=== PATIENT | female | born 1935 | race Caucasian/White ===

== ENCOUNTER 2017-04-07 15:36 | Inpatient (IN) | payer OTHER, MEDICAID ==
--- NOTE | 2017-04-07 15:39 | EDPHY ---
H & P HPI/ROS: HPI CHIEF COMPLAINT: Fall off toilet at [place] HISTORY OF PRESENT ILLNESS: This patient 81-year-old female, on Coumadin for AFib, hypertension, she resides at [facility], she presents emergency room by EMS GCS 15, alert and orient x4 after she fell off her toilet. She is unclear exactly what happened. She thinks she may of passed out vs. fell asleep. She fell forward with head strike and has right shoulder and right elbow pain. There is a noted right skin tear. She initially declined transport to the hospital but EMS encouraged her to come. She denies chest pain or shortness of breath. Past Medical History: Hypertension, AFib on Coumadin Past Surgical History: No recent surgery Social History: Denies daily use of drugs alcohol tobacco products, lives at [place] Family History: Noncontributory ROS REVIEW OF SYSTEMS: A comprehensive 10 point review of systems is otherwise negative aside from elements mentioned in the history of present illness. Exam Constitutional appears well nontoxic triage nursing summary reviewed, vital signs reviewed, awake/alert. Eyes normal conjunctivae and sclera, EOMI, PERRLA. HENT head/neck: No midline cervical spine pain, dry blood at the external os of the right ear, normal inspection, atraumatic, moist mucus membranes, no epistaxis, neck supple/ no meningismus, no raccoon eyes. Respiratory clear to auscultation bilaterally, normal breath sounds, no respiratory distress, no wheezing. Cardiovascular rate normal, regular rhythm, no murmur, no edema, distal pulses normal. Gastrointestinal soft, non-tender, no rebound, no guarding, normal bowel sounds, no distension, no pulsatile mass. Genitourinary no CVA tenderness. Musculoskeletal right arm: Neurovascular intact. Good radial pulse. Good cap refill. Full range of motion of right elbow and right shoulder. no midline vertebral tenderness, full range of motion, no calf swelling, no tenderness of extremities, no meningismus, good pulses, neurovascularly intact. Skin skin tear to the right posterior elbow. Skin tears approximately 3 cm in length, ecchymosis to the right clavicular region, ecchymosis to the right lateral shoulder. Neurologic awake, alert and oriented x 3, AAOx3, moves all 4 extremities equally, motor intact, sensory intact, CN II-XII intact, normal cerebellar, normal vision, normal speech. Psychiatric normal mood/affect. Heme/Lymph/Immune no lymphadenopathy. Differential Diagnosis: Includes but is not limited to in a particular order, syncope, fall mechanical off toilet, head injury, intracranial bleed, cervical spine injury, skin tear, elbow injury, shoulder injury Medical Decision Making: Plan for this patient check basic blood work including INR level, CT head, CT cervical spine, right shoulder x-ray crying right elbow x-ray. Update tetanus shot. Re-evaluation: EKG interpretation by me on record in [employer] system. Impression time of EKG 1543, sinus rhythm rate of 84 low amplitude however when I compare this EKG to her previous EKGs dated 08/24/2016 is unchanged morphology. No acute ischemic changes seen on this EKG. ED x-ray right shoulder negative for acute fracture ED x-ray right elbow negative for acute fracture. CT scan of the head without IV contrast The results of the study are negative for acute traumatic injury The study was read by Dr. Blevins. I viewed the images myself on the PACS system. CT scan of the cervical spine without IV contrast. The results of the study are negative for acute fracture. The study was read by Dr. Blevins. I viewed the images myself on the PACS system. 1737: Re-evaluation at this time this patient is resting comfortably. She does have elevated troponin. I do trend troponin she has been higher in the past. However given that she had a syncopal episode with a positive troponin she will most likely need to stay overnight in observation with the hospitalist service to make sure she does not have a cardiac event including arrhythmia or further syncope. This time she has no chest pain or shortness of breath she feels well. CT scan of her head neck are pending at this time. I spoke with the hospitalist service Dr. Gomez who agrees to admit the patient Source: Patient, EMS - Medical/Surgical History Hx Asthma: No Hx Chronic Respiratory Disease: Yes Hx Diabetes: No Hx Cardiac Disease: Yes Hx Renal Disease: No Hx Cirrhosis: No Hx Alcoholism: No Hx HIV/AIDS: No Hx Splenectomy or Spleen Trauma: No Other PMH: PE 2012, traumatic intracranial hemorrhage, COPD, hypertension, neuropathy, anxiety, chronic pain, wears 3L at home all times, wound to LLE getting treated now - Social History Smoking Status: Former smoker Constitutional: Initial Vital Signs Temperature (C) 37 C 04/07/17 15:38 Heart Rate 88 04/07/17 15:38 Respiratory Rate 18 04/07/17 15:38 Blood Pressure 137/82 H 04/07/17 15:38 O2 Sat (%) 97 18 15:38 O2 Delivery Mode Nasal Cannula O2 (L/minute) 2 Allergies/Adverse Reactions: amitriptyline [Amitriptyline] Allergy (Unknown, Verified 08/29/16 15:27) Tetracyclines Allergy (Unknown, Verified 04/04/16 17:00) tiotropium bromide [From Spiriva with HandiHaler] Allergy (Unknown, Verified 17:00) celecoxib Allergy (Verified 04/04/16 17:00) ciprofloxacin Allergy (Verified 08/29/16 15:27) rofecoxib Allergy (Verified 04/04/16 17:00) Home Medications: Medication Instructions Recorded Acetaminophen [Tylenol ES 500 mg 500 mg PO TID@0800,1200,2000 08/24/16 (*)] Albuterol [Proventil Inhaler HFA 2 puffs IH Q4H PRN 08/24/16 (*)] Alendronate Sodium [Fosamax 70 MG 70 mg PO SA@0700 08/24/16 (*)] Atorvastatin Calcium [Lipitor 40 40 mg PO DAILY 08/24/16 mg (*)] Bisacodyl [Dulcolax] 10 mg RC DAILY PRN 08/24/16 Bumetanide [Bumex (*)] 6 mg PO DAILY 08/24/16 Cholecalciferol Vit D3 [Vitamin D3 2,000 units PO DAILY 08/24/16 (*)] Gabapentin [Neurontin 300 MG (*)] 900 mg PO BID@08,20 08/24/16 Ipratropium/Albuterol [Duoneb (*)] 3 ml IH Q4H PRN 08/24/16 Levothyroxine [Synthroid 75 mcg 75 mcg PO DAILY06 08/24/16 (*)] Metoprolol Tartrate [Lopressor 25 12.5 mg PO BID@08,20 08/24/16 mg (*)] Omeprazole 20 mg PO BID@08,20 08/24/16 Venlafaxine HCl [Venlafaxine HCl 300 mg PO DAILY 08/24/16 ER] Warfarin Sodium [Coumadin 2.5MG 2.5 mg PO MOWEFR@18 08/24/16 (*)] Warfarin Sodium [Coumadin 2.5MG 3.75 mg PO SUTUTHSA@18 08/24/16 (*)] Amoxicillin Trihydrate [Amoxil 250 1,000 mg PO DAILY PRN 04/07/17 mg CAP (*)] Cyanocobalamin [Vitamin B12 (*)] 1,000 mcg PO DAILY 04/07/17 Ferrous Sulfate [Ferrous Sulf 325 325 mg PO DAILY@1200 04/07/17 MG (*)] Herbals/Supplements -Info Only 1 ea PO DAILY 04/07/17 Mometasone/Formoterol [Dulera 200 2 puffs IH BID@0800,1600 04/07/17 Mcg/5 Mcg Inhaler] Nitroglycerin [Nitrostat 0.4 mg 0.4 mg SL Q5M PRN 04/07/17 (*)] Olodaterol HCl [Striverdi Respimat] 2 puffs IH DAILY 04/07/17 Sennosides 8.6 mg PO Q12 PRN 04/07/17 TROSPIUM CHLORIDE [SANCTURA] 20 mg PO BID@0800,1600 04/07/17 Trimethoprim 100 mg PO DAILY 04/07/17 oxyCODONE IR [Oxycodone Ir (*)] 5 mg PO DAILY@2200 PRN 04/07/17 oxyCODONE IR [Oxycodone Ir (*)] 5 mg PO QID@08,10,14,18 04/07/17 Medical Decision Making - Data Points Laboratory Results: Laboratory Results 04/07/17 16:30 04/07/17 16:30 Medications Given: Discontinued Medications Sodium Chloride (Ns) 1,000 mls @ 100 mls/hr IV CONT JULIETA Stop: 04/08/17 03:59 Last Admin: 04/07/17 23:00 Dose: 1,000 mls Departure - Departure Disposition: [facility] Acute Clinical Impression: Skin tear, Elevated troponin Fall Qualifiers: Encounter type: initial encounter Qualified Code(s): W19.XXXA - Unspecified fall, initial encounter Syncope Qualifiers: Syncope type: unspecified Qualified Code(s): R55 - Syncope and collapse Condition: Good
--- NOTE | 2017-04-07 15:47 | CPEKG ---
Heart Rate: 84 RR Interval: 714 P-R Interval: 148 QRSD Interval: 70 QT Interval: 392 QTC Interval: 464 P [place]: 74 QRS [place]: 0 T Wave [place]: 57 EKG Severity - BORDERLINE ECG - EKG Impression: SINUS RHYTHM EKG Impression: LOW VOLTAGE IN FRONTAL LEADS EKG Impression: BORDERLINE R WAVE PROGRESSION, ANTERIOR LEADS Electronically Signed By: Alan Farah 08-Apr-2017 07:54:26
[2017-04-07 16:37] LABS: % IMMATURE GRANULYOCYTES 0.5 % (0.0-1.1); ABSOLUTE IMMATURE GRANULOCYTES 0.05 10^3/uL (0.00-0.10); ADD DIFF? NO; ADD MORPH? NO; ADD SCAN? NO; ATYPICAL LYMPHOCYTE FLAG 0 (0-99); FRAGMENT RBC FLAG 0 (0-99); HEMATOCRIT 40.4 % (38.0-47.0); HEMOGLOBIN 12.2 g/dL (12.6-16.3); LEFT SHIFT FLG 0 (0-99); LIPEMIA HEMOLYSIS FLAG 80 (0-99); MEAN CELL HEMOGLOBIN 29.6 pg (27.9-34.1); MEAN CELL HEMOGLOBIN CONCENTR. 30.2 g/dL (32.4-36.7); MEAN CELL VOLUME 98.1 fL (81.5-99.8); MEAN PLATELET VOLUME 10.4 fL (8.7-11.7); PLATELET CLUMPS FLAG 0 (0-99); PLATELET COUNT 273 10^3/uL (150-400); RED BLOOD CELL COUNT 4.12 10^6/uL (4.18-5.33); RED CELL DISTRIBUTION WIDTH 15.2 % (11.5-15.2)
[2017-04-07 16:46] LABS: INR 1.93 (0.83-1.16); PROTIME(PATIENT) 22.2 SEC (12.0-15.0)
[2017-04-07 16:47] LABS: APTT 34.2 SEC (23.0-38.0)
[2017-04-07 16:55] LABS: ANION GAP 10 mEq/L (8-16); CALCIUM 8.7 mg/dL (8.5-10.4); CARBON DIOXIDE 25 mEq/l (22-31); CHLORIDE 104 mEq/L (97-110); CREATININE 0.8 mg/dL (0.6-1.0); GLOMERULAR FILTRATION RATE > 60; GLUCOSE 77 mg/dL (70-100); POTASSIUM 5.6 mEq/L (3.5-5.2); SODIUM 139 mEq/L (134-144); SPECIMEN HEMOLYSIS 119
[2017-04-07 17:07] LABS: TROPONIN I 0.043 ng/mL (0-0.034)
[2017-04-07] MEDS ORDERED: NS 1,000 ML IV SCH (18:00)
[2017-04-07] MEDS ORDERED: ONDANSETRON DISINTEGRATING 4 MG TAB PO PRN (18:16)
[2017-04-07] MEDS ORDERED: ONDANSETRON 4 MG/2 ML VIAL IVP PRN (18:16)
--- NOTE | 2017-04-07 19:33 | GHP ---
[f rep st] HISTORY AND PHYSICAL DATE OF ADMISSION: 04/07/2017 CHIEF COMPLAINT: Syncope. HISTORY OF PRESENT ILLNESS: Patient is an 81-year-old female with history of recurrent pulmonary emboli, coronary artery disease, hypothyroidism, chronic lower extremity wounds, who presented from [facility] after a syncopal episode. She was on the toilet and fell over and hit her right shoulder and the side of her head. She denies any chest pain, shortness of breath, clamminess or palpitations. She did not eat lunch today and did take oxycodone, which she thinks contributed to this episode. She has chronic bladder spasms. She uses oxycodone for chronic pain in her back, when she sleeps up in a chair at night. Denies fevers, chills or sweats. No nausea, vomiting, diarrhea. No PND, no lower extremity swelling. REVIEW OF SYSTEMS: I completed a 10-point review of systems, negative except as noted in HPI. PAST MEDICAL HISTORY: 1. COPD. 2. Chronic hypoxemic respiratory failure. 3. Diastolic heart failure. 4. Hypertension. 5. Hypothyroidism. 6. Atrial fibrillation. 7. Recurrent pulmonary embolism. 8. History of subdural hematoma. 9. Chronic pain. 10. Recurrent UTIs. SURGICAL HISTORY: 1. Two lumbar surgeries. 2. Knee surgery. 3. Colostomy and takedown for colon abscess. 4. Carpal tunnel bilaterally. 5. Hysterectomy. 6. 2 abdominal surgeries. FAMILY HISTORY: Mother with breast cancer. SOCIAL HISTORY: Uses a wheelchair or walker. Lives at [facility]. Smoked for 50 years, half-a-pack a day. No alcohol or illicits. ALLERGIES: Amitriptyline, tetracycline, Spiriva, celecoxib, Cipro, rofecoxib. HOME MEDICATIONS: Coumadin 2.5 mg Thursday and Thursday, 3.75 every other day. Effexor 225 daily. Senna. Potassium 20 mEq daily. Omeprazole 20 mg twice daily. Striverdi 2 puffs daily. Metoprolol 200 mg twice daily. Levothyroxine 75 mcg. Lactobacillus. DuoNebs. Oxycodone 5 mg q.i.d. Gabapentin 900 mg twice daily. Atorvastatin 40 mg daily. Alendronate 70. Albuterol. Tylenol as needed. PHYSICAL EXAM: VITAL SIGNS: Temperature 37, blood pressure 137/82, heart rate 80s, respirations 16, 97% on room air. GENERAL: Patient is lying in bed, in no acute distress. HEENT: PERRLA. EOMI. Oropharynx clear. CV: Regular rate and rhythm. No murmurs, gallops, or rubs. LUNGS: Clear to auscultation bilaterally. ABDOMEN: Soft, nontender, nondistended. Positive bowel sounds. : No suprapubic or CVA tenderness. MUSCULOSKELETAL: Left lower extremity with prior surgical incision, healed. Left leg is red. Per patient, she states that it is always this red, more so than the right. She was wearing stockings today. She denies any new warmth or pain to that leg. Right elbow with a small tear. NEURO: Cranial nerves 2 through 12 intact. PSYCH: Alert and oriented x3.. LABS: WBC is 9, hemoglobin 12, hematocrit 40, platelets 273. Sodium 139, potassium 5.6, chloride 104, BUN 18, creatinine 0.8. Troponin 0.043. UA is pending. INR is 1.9. PTT is 22. EKG, personally reviewed by me: Poor R-wave progression, seen on prior. Low voltage in frontal leads. IMAGING STUDIES: Head CT: Stable, mottled atrophy. No hemorrhage. Tala hole , posterior frontal bone from prior intraventricular shunt catheter. Cervical spine: No acute osseous abnormality. Elbow x-ray: Soft tissue injury. No fracture. Shoulder x-ray: Old posttraumatic deformity of the right proximal humerus, stable in appearance. Nuclear stress test 08/2016: Normal LV function, 52%, suspect inferior wall infarction. ASSESSMENT AND PLAN: 1. Syncope: Differential includes arrhythmia versus orthostasis versus medications versus infection. The patient denies chest pain or shortness of breath. Initial troponin was mildly elevated at 0.043. She has had a stress test in 2016 that showed a possible inferior infarct. At that time, Cardiology evaluated and did not recommend catheterization; rather, she was optimized on medical management. We will repeat troponin and EKG, monitor her on telemetry. Check a UA. Suspect due opioids and not eating lunch. Consider pulmonary embolism as INR mildly subtherapeutic; however, denies any increased shortness of breath or chest pain. No tachycardic or increased oxygen needs. Continue Coumadin, no Lovenox bridge with history of subdural hematoma on anticoagulation in the past. 2. Fall: small laceration on her right elbow that will be repaired in the ER. CT head, cervical neck, shoulder and elbow x-rays were negative for acute fracture. PT, OT to evaluate. 3. Hypothyroidism: Levothyroxine. 4. Chronic pain: recommend reducing the amount of opioids, as this likely contributed to her fall today. 5. Chronic obstructive pulmonary disease: home inhalers. 6. Chronic hypoxic respiratory failure: due to COPD. 7. Hyperkalemia: No evidence of peaked T waves. Repeat after hydration. Monitoring on telemetry. 8. Diet: Cardiac. 9. DVT prophylaxis: On Coumadin. Disp: warrants inpatient admission given acute fall, warranting PT, OT, telemetry to evaluate for indeterminate troponin. /[id number]/MODL MTDD
[2017-04-07 21:04] LABS: ANION GAP 12 mEq/L (8-16); CALCIUM 8.9 mg/dL (8.5-10.4); CARBON DIOXIDE 28 mEq/l (22-31); CHLORIDE 105 mEq/L (97-110); CREATININE 0.8 mg/dL (0.6-1.0); GLOMERULAR FILTRATION RATE > 60; GLUCOSE 84 mg/dL (70-100); POTASSIUM 4.6 mEq/L (3.5-5.2); SODIUM 145 mEq/L (134-144)
[2017-04-07 21:16] LABS: TROPONIN I 0.046 ng/mL (0-0.034)
[2017-04-07 21:28] LABS: COLOR PALE YELLOW; LEUKOCYTE ESTERASE,URINE 3+ (NEGATIVE); NITRITE,URINE NEGATIVE (NEGATIVE)
[2017-04-07 21:35] LABS: MUCUS TRACE /lpf (NONE-1+)
[2017-04-07] MEDS ORDERED: ALBUTEROL 200 PUFFS/18 GM MDI IH PRN (22:19)
[2017-04-07] MEDS ORDERED: NITROGLYCERIN 0.4 MG BTL SL PRN (22:19)
[2017-04-07] MEDS ORDERED: SENNOSIDES 1 TAB PO PRN (22:19)
[2017-04-07] MEDS ORDERED: IPRATROPIUM/ALBUTEROL 3 ML DEYVIAL IH PRN (22:19)
[2017-04-07] MEDS: ACETAMINOPHEN 325 MG TAB PO PRN (22:59)
[2017-04-07] MEDS: GABAPENTIN 300 MG CAP PO SCH (22:59)
[2017-04-08 04:50] LABS: HEMATOCRIT 41.6 % (38.0-47.0); HEMOGLOBIN 12.7 g/dL (12.6-16.3); MEAN CELL HEMOGLOBIN CONCENTR. 30.5 g/dL (32.4-36.7); MEAN CELL VOLUME 98.1 fL (81.5-99.8); RED BLOOD CELL COUNT 4.24 10^6/uL (4.18-5.33); RED CELL DISTRIBUTION WIDTH 15.3 % (11.5-15.2)
[2017-04-08 05:08] LABS: INR 1.76 (0.83-1.16); PROTIME(PATIENT) 20.6 SEC (12.0-15.0)
[2017-04-08 05:10] LABS: ANION GAP 12 mEq/L (8-16); CALCIUM 9.2 mg/dL (8.5-10.4); CARBON DIOXIDE 25 mEq/l (22-31); CHLORIDE 108 mEq/L (97-110); CREATININE 0.8 mg/dL (0.6-1.0); GLOMERULAR FILTRATION RATE > 60; GLUCOSE 79 mg/dL (70-100); POTASSIUM 4.6 mEq/L (3.5-5.2); SODIUM 145 mEq/L (134-144)
[2017-04-08] MEDS: LEVOTHYROXINE 75 MCG TAB PO SCH (06:43)
[2017-04-08] MEDS: ACETAMINOPHEN 325 MG TAB PO PRN ×2 (06:43→20:12)
[2017-04-08] MEDS: GABAPENTIN 300 MG CAP PO SCH ×2 (06:44→20:12)
[2017-04-08] MEDS ORDERED: GABAPENTIN 300 MG CAP PO SCH (08:00)
[2017-04-08] MEDS ORDERED: Herbals/Supplements -Info Only PO SCH (09:00)
[2017-04-08] MEDS: Olodaterol Hcl [Striverdi Respimat] IH SCH (09:59)
[2017-04-08] MEDS: (Mometasone/Formoterol [Dulera 200 Mcg/5 Mcg Inhaler] IH SCH ×2 (09:59→15:11)
[2017-04-08] MEDS: Trospium Chloride [Sanctura] 20 MG PO SCH ×2 (09:59→15:11)
[2017-04-08] MEDS: ATORVASTATIN CALCIUM 40 MG TAB PO SCH (10:16)
[2017-04-08] MEDS: PANTOPRAZOLE SODIUM 40 MG TAB PO SCH ×2 (10:16→20:12)
[2017-04-08] MEDS: CYANO/VITAMIN B12 1000 MCG TAB PO SCH (10:16)
[2017-04-08] MEDS: VENLAFAXINE XR 150 MG CAP PO SCH (10:16)
[2017-04-08] MEDS: CHOLECALCIFEROL VIT D3 1,000 UNITS TAB PO SCH (10:16)
[2017-04-08] MEDS: TRIMETHOPRIM 100 MG TAB PO SCH (10:30)
[2017-04-08] MEDS: FERROUS SULFATE 325 MG TAB PO SCH (12:23)
[2017-04-08] MEDS: oxyCODONE IR 5 MG TAB PO SCH ×2 (14:45→18:05)
--- NOTE | 2017-04-08 15:55 | PDCARCONS ---
Cardiology Consult Reason for Consult: Question of syncope Chief Complaint: Fall Requesting Physician: Jason History of Present Illness: 81-year-old female history of hyperlipidemia history of pulmonary embolic disease who reports a mechanical fall. She was sitting on the toilet reading when she fell off the toilet and hit her head. Her daughter brought her to the emergency department today she was admitted for further evaluation. She has had mechanical falls in the past. She denies syncope or near syncope. She had no chest pain. She denies palpitations. She has had no PND orthopnea. Review of the patient's past medical record does show a history of atrial fibrillation though the patient has no recollection of this. It also suggest coronary artery disease based on abnormal nuclear stress test that suggested the possibility of inferior ischemia that was treated medically. Patient is under the care of [facility]. She has a history of pulmonary embolic disease many years ago and has been treated with chronic anticoagulation. At this point she is very emotionally distraught as she feels she will lose her apartment for this fall. Cardiac review of systems is negative for chest pain, shortness of breath, PND , orthopnea, palpitations, syncope, near syncope, edema. History Information - Allergies/Home Medication List Allergies/Adverse Reactions: amitriptyline [Amitriptyline] Allergy (Unknown, Verified 08/29/16 15:27) Tetracyclines Allergy (Unknown, Verified 04/04/16 17:00) tiotropium bromide [From Spiriva with HandiHaler] Allergy (Unknown, Verified 17:00) celecoxib Allergy (Verified 04/04/16 17:00) ciprofloxacin Allergy (Verified 08/29/16 15:27) rofecoxib Allergy (Verified 04/04/16 17:00) Home Medications: Acetaminophen [Tylenol ES 500 mg (*)] 500 mg PO TID@0800,1200,2000 08/24/16 [ Last Taken 04/07/17 12:00] Albuterol [Proventil Inhaler HFA (*)] 2 puffs IH Q4H PRN 08/24/16 [Last Taken Unknown] Alendronate Sodium [Fosamax 70 MG (*)] 70 mg PO SA@0700 08/24/16 [Last Taken ] Atorvastatin Calcium [Lipitor 40 mg (*)] 40 mg PO DAILY 08/24/16 [Last Taken ] Bisacodyl [Dulcolax] 10 mg RC DAILY PRN 08/24/16 [Last Taken Unknown] Bumetanide [Bumex (*)] 6 mg PO DAILY 08/24/16 [Last Taken 04/03/17] Cholecalciferol Vit D3 [Vitamin D3 (*)] 2,000 units PO DAILY 08/24/16 [Last Taken 04/07/17] Gabapentin [Neurontin 300 MG (*)] 900 mg PO BID@,08/24/16 [Last Taken 04/07 08:00] Ipratropium/Albuterol [Duoneb (*)] 3 ml IH Q4H PRN 08/24/16 [Last Taken Unknown] Levothyroxine [Synthroid 75 mcg (*)] 75 mcg PO DAILY06 08/24/16 [Last Taken ] Metoprolol Tartrate [Lopressor 25 mg (*)] 12.5 mg PO BID@08/24/16 [Last Taken 04/07/17 08:00] Omeprazole 20 mg PO BID@,08/24/16 [Last Taken 04/06/17] Venlafaxine HCl [Venlafaxine HCl ER] 300 mg PO DAILY 08/24/16 [Last Taken ] Warfarin Sodium [Coumadin 2.5MG (*)] 2.5 mg PO MOWEFR@18 08/24/16 [Last Taken ] Warfarin Sodium [Coumadin 2.5MG (*)] 3.75 mg PO SUTUTHSA@18 08/24/16 [Last Taken 04/07/17] Amoxicillin Trihydrate [Amoxil 250 mg CAP (*)] 1,000 mg PO DAILY PRN 04/07/17 [ Last Taken Unknown] Cyanocobalamin [Vitamin B12 (*)] 1,000 mcg PO DAILY 04/07/17 [Last Taken ] Ferrous Sulfate [Ferrous Sulf 325 MG (*)] 325 mg PO DAILY@1200 04/07/17 [Last Taken 04/07/17] Herbals/Supplements -Info Only 1 ea PO DAILY 04/07/17 [Last Taken Unknown] Mometasone/Formoterol [Dulera 200 Mcg/5 Mcg Inhaler] 2 puffs IH BID@0800,1600 [Last Taken 04/07/17 08:00] Nitroglycerin [Nitrostat 0.4 mg (*)] 0.4 mg SL Q5M PRN 04/07/17 [Last Taken Unknown] Olodaterol HCl [Striverdi Respimat] 2 puffs IH DAILY 04/07/17 [Last Taken ] Sennosides 8.6 mg PO Q12 PRN 04/07/17 [Last Taken 03/29/17] TROSPIUM CHLORIDE [SANCTURA] 20 mg PO BID@0800,1600 04/07/17 [Last Taken 08:00] Trimethoprim 100 mg PO DAILY 04/07/17 [Last Taken 04/07/17] oxyCODONE IR [Oxycodone Ir (*)] 5 mg PO DAILY@2200 PRN 04/07/17 [Last Taken 06/07] oxyCODONE IR [Oxycodone Ir (*)] 5 mg PO QID@08,10,14,18 04/07/17 [Last Taken 14:00] I have personally reviewed and updated: medical history, social history, surgical history - Past Medical History no pertinent PMH, atrial fibrillation, coronary artery disease, COPD, hypertension, pulmonary embolism - Surgical History Reports: no pertinent surgical hx - Family History Positive for: non-pertinent - Social History Smoking Status: Former smoker Alcohol Use: None Physical Exam Temp Pulse Resp BP Pulse Ox 37.1 C 135 H 17 163/102 H 96 04/08/17 15:13 04/08/17 15:13 04/08/17 15:13 04/08/17 15:13 04/08/17 15:13 O2 (L/minute) 2 Constitutional: no apparent distress, appears nourished Eyes: anicteric sclera Ears, Nose, Mouth, Throat: moist mucous membranes, hearing normal, hard of hearing, other (Dried blood seen in the right external ear) Cardiovascular: regular rate and rhythym, no murmur, rub, or gallop, pulses symmetric bilaterally, No JVD Peripheral Pulses: 1+: carotid (R), carotid (L), femoral (R), femoral (L), dorsalis-pedis (R), dorsalis-pedis (L) Respiratory: no respiratory distress, no rales or rhonchi, reduced air movement Gastrointestinal: normoactive bowel sounds, soft, non-tender abdomen Skin: warm, erythema, other (Lower extremity shows significant erythema. Old surgical scars are seen. No open ulcers were identified) Musculoskeletal: other (Patient is unable to walk is confined to a wheelchair) Neurologic: AAOx3, No facial droop Psychiatric: anxious, depressed Lymph, Heme, Immunologic: no cervical LAD, no supraclavicular LAD Lab and Imaging 04/08/17 03:51 04/08/17 03:51 WBC 9.54 10^3/uL (3.80-9.50) H 04/08/17 03:51 RBC 4.24 10^6/uL (4.18-5.33) 04/08/17 03:51 Hgb 12.7 g/dL (12.6-16.3) 04/08/17 03:51 Hct 41.6 % (38.0-47.0) 04/08/17 03:51 MCV 98.1 fL (81.5-99.8) 04/08/17 03:51 MCH 30.0 pg (27.9-34.1) 04/08/17 03:51 MCHC 30.5 g/dL (32.4-36.7) L 04/08/17 03:51 RDW 15.3 % (11.5-15.2) H 04/08/17 03:51 Plt Count 282 10^3/uL (150-400) 04/08/17 03:51 MPV 10.4 fL (8.7-11.7) 04/07/17 16:30 Neut % (Auto) 70.1 % (39.3-74.2) 04/07/17 16:30 Lymph % (Auto) 18.7 % (15.0-45.0) 04/07/17 16:30 [place] % (Auto) 8.2 % (4.5-13.0) 04/07/17 16:30 Eos % (Auto) 2.0 % (0.6-7.6) 04/07/17 16:30 Baso % (Auto) 0.5 % (0.3-1.7) 04/07/17 16:30 Nucleat RBC Rel Count 0.0 % (0.0-0.2) 04/07/17 16:30 Absolute Neuts (auto) 6.88 10^3/uL (1.70-6.50) H 04/07/17 16:30 Absolute Lymphs (auto) 1.83 10^3/uL (1.00-3.00) 04/07/17 16:30 Absolute Monos (auto) 0.80 10^3/uL (0.30-0.80) 04/07/17 16:30 Absolute Eos (auto) 0.20 10^3/uL (0.03-0.40) 04/07/17 16:30 Absolute Basos (auto) 0.05 10^3/uL (0.02-0.10) 04/07/17 16:30 Absolute Nucleated RBC 0.00 10^3/uL (0-0.01) 04/07/17 16:30 Immature Gran % 0.5 % (0.0-1.1) 04/07/17 16:30 Immature Gran # 0.05 10^3/uL (0.00-0.10) 04/07/17 16:30 PT 20.6 SEC (12.0-15.0) H 04/08/17 03:51 INR 1.76 (0.83-1.16) H 04/08/17 03:51 APTT 34.2 SEC (23.0-38.0) 04/07/17 16:30 Sodium 145 mEq/L (134-144) H 04/08/17 03:51 Potassium 4.6 mEq/L (3.5-5.2) 04/08/17 03:51 Chloride 108 mEq/L (97-110) 04/08/17 03:51 Carbon Dioxide 25 mEq/l (22-31) 04/08/17 03:51 Anion Gap 12 mEq/L (8-16) 04/08/17 03:51 BUN 16 mg/dL (7-23) 04/08/17 03:51 Creatinine 0.8 mg/dL (0.6-1.0) 04/08/17 03:51 Estimated GFR > 60 04/08/17 03:51 Glucose 79 mg/dL (70-100) 04/08/17 03:51 Calcium 9.2 mg/dL (8.5-10.4) 04/08/17 03:51 Troponin I 0.056 ng/mL (0-0.034) H 04/08/17 11:10 NT-Pro-B Natriuret Pep 1080 pg/mL (0-450) H 04/07/17 16:30 TSH 1.920 uIU/mL (0.465-4.680) 04/07/17 16:30 Specimen Hemolysis 119 04/07/17 16:30 Urine Color PALE YELLOW 04/07/17 21:15 Urine Appearance HAZY 04/07/17 21:15 Urine pH 7.0 (5.0-7.5) 04/07/17 21:15 Ur Specific [place] 1.005 (1.002-1.030) 04/07/17 21:15 Urine Protein NEGATIVE (NEGATIVE) 04/07/17 21:15 Urine Ketones NEGATIVE (NEGATIVE) 04/07/17 21:15 Urine Blood NEGATIVE (NEGATIVE) 04/07/17 21:15 Urine Nitrate NEGATIVE (NEGATIVE) 04/07/17 21:15 Urine Bilirubin NEGATIVE (NEGATIVE) 04/07/17 21:15 Urine Urobilinogen NEGATIVE EU (0.2-1.0) 04/07/17 21:15 Ur Leukocyte Esterase 3+ (NEGATIVE) H 04/07/17 21:15 Urine RBC 1-3 /hpf (0-3) 04/07/17 21:15 Urine WBC 5-10 /hpf (0-3) H 04/07/17 21:15 Ur Epithelial Cells TRACE /lpf (NONE-1+) 04/07/17 21:15 Urine Mucus TRACE /lpf (NONE-1+) 04/07/17 21:15 Urine Glucose NEGATIVE (NEGATIVE) 04/07/17 21:15 EKG additional interpertation: EKG reveals sinus rhythm without acute ST-T changes concerning for ischemia. There is poor R-wave progression across the precordium. A/P Assessment: Discussion: Patient's clinical symptoms by her report are of a mechanical fall. She did not report presyncope or syncope. At the present time agree with telemetry monitoring. Consider outpatient monitoring. Patient has a history by report of coronary artery disease. Her troponin is indeterminate. Her EKG does not show acute ST-T changes concerning for ischemia. She is on good medical therapy with aspirin and beta-bina. Would recommend an echocardiogram for assessment of LV function with poor R-wave progression across the precordium to help risk stratify the patient. Hypertension with diastolic heart failure by report. Blood pressure today is 160/100. Recommend continued serial follow-up with careful control. Would like to avoid orthostatic dizziness especially with her history of falls. Pulmonary embolic disease currently on anticoagulation. Echocardiogram will assess the right ventricle. History of atrial fibrillation. She is currently on sinus rhythm. She is on rate control with beta-bina. She is appropriately anticoagulated. At this point there are no indications for further aggressive risk stratification. Agree with follow-up in the hospital. Plan: Echocardiogram. Serial EKG. Clinical follow-up. Continue current medical therapy. Past Medical History - Personal History Current Tetanus/Diphtheria Vaccine: Yes Current Tetanus Diphtheria and Acellular Pertussis (TDAP): Yes - Medical/Surgical History Hx Asthma: No Hx Chronic Respiratory Disease: Yes Hx Cardiac Disease: Yes Hx Diabetes: No Hx Renal Disease: No Hx Alcoholism: No Hx Cirrhosis: No Hx HIV/AIDS: No Hx Splenectomy or Spleen Trauma: No Other PMH: PE 2013, traumatic intracranial hemorrhage, COPD, hypertension, neuropathy, anxiety, chronic pain, wears 3L at home all times, wound to LLE getting treated now - Social History Smoking Status: Former smoker Review of Systems - Review of Systems Constitutional: chills. denies: fever EENTM: ear pain Respiratory: no symptoms reported Cardiac: no symptoms reported Gastrointestinal/Abdominal: constipation. denies: diarrhea, nausea Genitourinary: no symptoms Musculoskelatal: no symptoms Skin: rash Neurological: anxiety, depressed Hematologic/Lymphatic: easy bleeding Immunologic/allergic: no symptoms reported
--- NOTE | 2017-04-08 17:15 | HOSPPROG ---
Hospitalist Progress Note Assessment/Plan: * Syncope -continue to watch on tele -getting progressively more tachycardic -recheck EKG -possible dehydration - IVF * Borderline trop - positive stress test in Dec - reversible ischemia anteriorly -cards consulted to consider cath -continue medical management -ECHO pending * h/o PE - INR subtherapeutic -avoid bridging due to h/o subdural -consider CTA for PE, noy if tachycardia continues * Chronic back pain - continuous narcotic dependency -restart home oxycodone and monitor for effect * COPD with chronic respiratory failure - O2 * Afib * Possible UTI - no symptoms -hold abx for now * Elbow laceration s/p repair Subjective: no complaints. Objective: Vital Signs Temp Pulse Resp BP Pulse Ox 37.1 C 135 H 17 163/102 H 96 04/08/17 15:13 04/08/17 15:13 04/08/17 15:13 04/08/17 15:13 04/08/17 15:13 Laboratory Results 04/08/17 03:51 04/08/17 03:51 04/07/17 04/08/17 04/09/17 05:59 05:59 05:59 Intake Total 200 500 Output Total 5 300 Balance 195 200 PT 20.6 SEC (12.0-15.0) H 04/08/17 03:51 INR 1.76 (0.83-1.16) H 04/08/17 03:51 d/w cardiology - they will consult - Physical Exam Constitutional: no apparent distress, appears nourished, not in pain Cardiovascular: regular rate and rhythym, no murmur, rub, or gallop Respiratory: no respiratory distress, no rales or rhonchi, clear to auscultation Gastrointestinal: normoactive bowel sounds, soft, non-tender abdomen, no palpable masses Skin: no rashes or abrasions, no fluctuance, no induration, erythema (severe to LE) Neurologic: AAOx3, sensation intact bilaterally Psychiatric: interacting appropriately, not anxious, not encephalopathic, thought process linear ICD10 Worksheet Patient Problems: Problems Problem Status Onset Elevated troponin Acute Fall Acute Skin tear Acute Syncope Acute Cellulitis Acute Hydrocephalus Acute Intracranial hemorrhage Acute Sepsis Acute
[2017-04-08] MEDS: WARFARIN SODIUM 2.5 MG TAB PO SCH (18:05)
[2017-04-08] MEDS: NS 1,000 ML IV SCH (18:06)
--- NOTE | 2017-04-08 18:07 | CPEKG ---
Heart Rate: 112 RR Interval: 536 P-R Interval: 144 QRSD Interval: 70 QT Interval: 344 QTC Interval: 470 P [place]: 85 QRS [place]: 21 T Wave [place]: 67 EKG Severity - ABNORMAL ECG - EKG Impression: SINUS TACHYCARDIA EKG Impression: LOW VOLTAGE THROUGHOUT EKG Impression: BORDERLINE R WAVE PROGRESSION, ANTERIOR LEADS EKG Impression: BORDERLINE T ABNORMALITIES, ANT-LAT LEADS Electronically Signed By: Alan Farah 08-Apr-2017 23:25:58
[2017-04-08] MEDS: METOPROLOL TARTRATE 25 MG TAB PO SCH (18:11)
[2017-04-08] MEDS ORDERED: oxyCODONE IR 5 MG TAB PO PRN (22:00)
[2017-04-09] MEDS: LEVOTHYROXINE 75 MCG TAB PO SCH (04:04)
[2017-04-09] MEDS: NS 1,000 ML IV SCH (04:04)
[2017-04-09 04:10] LABS: % IMMATURE GRANULYOCYTES 0.2 % (0.0-1.1); ABSOLUTE IMMATURE GRANULOCYTES 0.02 10^3/uL (0.00-0.10); ADD DIFF? NO; ADD MORPH? NO; ADD SCAN? NO; ATYPICAL LYMPHOCYTE FLAG 10 (0-99); FRAGMENT RBC FLAG 0 (0-99); HEMATOCRIT 43.7 % (38.0-47.0); HEMOGLOBIN 13.4 g/dL (12.6-16.3); LEFT SHIFT FLG 0 (0-99); LIPEMIA HEMOLYSIS FLAG 80 (0-99); MEAN CELL HEMOGLOBIN 29.9 pg (27.9-34.1); MEAN CELL HEMOGLOBIN CONCENTR. 30.7 g/dL (32.4-36.7); MEAN CELL VOLUME 97.5 fL (81.5-99.8); MEAN PLATELET VOLUME 10.4 fL (8.7-11.7); PLATELET CLUMPS FLAG 0 (0-99); PLATELET COUNT 267 10^3/uL (150-400); RED BLOOD CELL COUNT 4.48 10^6/uL (4.18-5.33); RED CELL DISTRIBUTION WIDTH 15.3 % (11.5-15.2)
[2017-04-09 04:27] LABS: INR 1.48 (0.83-1.16); PROTIME(PATIENT) 17.9 SEC (12.0-15.0)
[2017-04-09 04:28] LABS: ANION GAP 10 mEq/L (8-16); CALCIUM 8.8 mg/dL (8.5-10.4); CARBON DIOXIDE 27 mEq/l (22-31); CHLORIDE 106 mEq/L (97-110); CREATININE 0.8 mg/dL (0.6-1.0); GLOMERULAR FILTRATION RATE > 60; GLUCOSE 83 mg/dL (70-100); SODIUM 143 mEq/L (134-144)
[2017-04-09 04:40] LABS: TROPONIN I 0.063 ng/mL (0-0.034)
[2017-04-09] MEDS: GABAPENTIN 300 MG CAP PO SCH ×2 (07:59→21:06)
[2017-04-09] MEDS: CYANO/VITAMIN B12 1000 MCG TAB PO SCH (08:00)
[2017-04-09] MEDS: TRIMETHOPRIM 100 MG TAB PO SCH (08:00)
[2017-04-09] MEDS: ATORVASTATIN CALCIUM 40 MG TAB PO SCH (08:00)
[2017-04-09] MEDS: PANTOPRAZOLE SODIUM 40 MG TAB PO SCH ×2 (08:00→21:06)
[2017-04-09] MEDS: VENLAFAXINE XR 150 MG CAP PO SCH (08:00)
[2017-04-09] MEDS: BUMETANIDE 2 MG TAB PO SCH (08:01)
[2017-04-09] MEDS: METOPROLOL TARTRATE 25 MG TAB PO SCH (08:01)
[2017-04-09] MEDS: CHOLECALCIFEROL VIT D3 1,000 UNITS TAB PO SCH (08:01)
[2017-04-09] MEDS: oxyCODONE IR 5 MG TAB PO SCH ×4 (08:02→21:06)
[2017-04-09] MEDS: (Mometasone/Formoterol [Dulera 200 Mcg/5 Mcg Inhaler] IH SCH ×2 (08:24→16:37)
[2017-04-09] MEDS: Olodaterol Hcl [Striverdi Respimat] IH SCH (08:24)
[2017-04-09] MEDS: Trospium Chloride [Sanctura] 20 MG PO SCH ×2 (08:29→16:38)
[2017-04-09] MEDS ORDERED: ALTEPLASE 2 MG VIAL IVP PRN (09:01)
--- NOTE | 2017-04-09 10:28 | ECHO ---
[id number] + + [address] : : [place] [address] : : [phone] + + Adult Echocardiographic Report + -------+ :Name: HAKEEM MERINO MStudy Date: 04/09/2017 08:52 AM : : Hospital Admission Number: [id number] Locati on: 203: :: 1935 Gender: Female Height: 60 in : :Age: 81 yrs Race: WH Weight: 198 lb : :Reason For Study: Assess anterior/inferior wall motion : :abnormalities BSA: 1.9 meter s2 : + -------+ MMode/2D Measurements \T\ Calculations IVSd: 1.1 cm LVIDd: 4.3 cm FS: 28.7 % Ao root diam: LVPWd: 0.90 cm LVIDs: 3.0 cm EDV(Teich): 3.3 cm 81.8 ml LA dimension: ESV(Teich): 3.0 cm 36.3 ml EF(Teich): 55.6 % LVLd ap4: 8.1 cm SV(MOD-sp4): EDV(MOD-sp4): 38.0 ml 61.0 ml LVLs ap4: 7.3 cm ESV(MOD-sp4): 23.0 ml EF(MOD-sp4): 62.3 % Normal Measurement Values: + + :LVIDd (3.5-5.7cm) IVSd (0.6-1.1cm) LVPWd (0.6-1.1cm) Aortic Root (2.0-3.7cm)Left Atrium (1.5-4.0cm): :LV Vol(d) (76-115ml) LV Vol(s) (29-48ml) Ejec Fraction (50-65%)PV Graeme (0.6- 1.2m/s) TV Graeme (0.4-1.0m/s) : :MV E Graeme (0.8-1.0m/s)MV A Rgaeme (0.3-1.0m/s)LVOT Graeme (0.7-1.2m/s) Asc Ao Graeme ( 0.9-1.8m/s) : + + Doppler Measurements \T\ Calculations MV E max graeme: 82.4 cm/sec Ao V2 max: 100.4 cm/sec MV A max graeme: 107.6 cm/sec Ao max P.0 mmHg MV E/A: 0.77 Left Ventricle The left ventricle is normal in size. There is mild concentric left ventricular hypertrophy. Left ventricular systolic function is normal. Ejection Fraction = 60-65%. LV basal inferoseptal wall appears hypokinetic. All remaining LV segments have normal motion. Right Ventricle The right ventricle is normal in size and function. Atria The left atrial size is normal. Right atrial size is normal. The interatrial septum is intact with no evidence for an atrial septal defect. Mitral Valve There is mild mitral annular calcification. There is no evidence of mitral valve prolapse. There is no mitral valve stenosis. There is mild mitral regurgitation. Tricuspid Valve Normal tricuspid valve. There is trace tricuspid regurgitation. Aortic Valve The aortic valve opens well. There is no aortic stenosis. Trace to mild aortic regurgitation. Pulmonic Valve The pulmonic valve is normal in structure and function. There is no pulmonic valvular regurgitation. Great Vessels The aortic root is normal size. Pericardium/Pleural There is no pericardial effusion. There is a fat pad seen. Conclusion A complete two-dimensional transthoracic echocardiogram was performed (2D, M-mode, Doppler and color flow Doppler). Left ventricular systolic function is normal. There is mild concentric left ventricular hypertrophy. Ejection Fraction = 60-65%. LV basal inferoseptal wall appears hypokinetic. All remaining LV segments have normal motion. There is mild mitral annular calcification. There is mild mitral regurgitation. There is trace tricuspid regurgitation. Trace to mild aortic regurgitation. There is a fat pad seen. Final Reading Physician: Mely Verdugo signed on 04/09/2017 10:27 AM Ordering Physician: ELA GALAN Performed By: Saida Pantoja RDCS
--- NOTE | 2017-04-09 10:32 | SOAPPROG ---
SOAP Progress Note Assessment/Plan: Assessment: 1. New left-sided pleuritic chest pain associated with tachycardia. 2. 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 3. Hypertension 4. History of mechanical falls. 5. Abnormal EKG with poor anterior R-wave progression associated with mildly abnormal treadmill test in August. Procedures: Echocardiogram today 04/09/17 shows normal LV systolic function without regional wall motion abnormalities compared to August. The right ventricle is normal. There is no valvular abnormalities. 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 Agree with workup by hospitalist service. Heparin in the short term. Patient remains hypertensive. Based on echocardiogram there is suggestion of elevated filling pressures. May benefit from more aggressive diuresis. Will add angiotensin receptor bina. Elevated brain atretic peptide secondary to pressure overload. Abnormal EKG associated with normal LV function and no history of myocardial infarction with flat mild elevation in troponins. Continue beta-bina and statin. Consider addition of low-dose aspirin. No further cardiac evaluation at this time. 04/09/17 10:29 04/09/17 10:33 Subjective: Pleuritic left-sided chest pain. No shortness of breath. Patient denies PND orthopnea. She has had no syncope or near syncope. She has had no further falls. Objective: Vital Signs Temp Pulse Resp BP Pulse Ox 36.9 C 110 H 14 157/103 H 98 04/09/17 08:00 04/09/17 08:01 04/09/17 08:00 04/09/17 08:01 04/09/17 08:00 Microbiology 04/07/17 21:15 Urine Culture - Final Urine,Clean Catch Escherichia Coli Laboratory Results 04/09/17 04:00 04/09/17 04:00 04/08/17 04/09/17 04/10/17 05:59 05:59 05:59 Intake Total 200 2000 Output Total 5 600 Balance 195 1400 PT 17.9 SEC (12.0-15.0) H 04/09/17 04:00 INR 1.48 (0.83-1.16) H 04/09/17 04:00 Medications Generic Name Dose Route Start Last Admin Trade Name Freq PRN Reason Stop Dose Admin Atorvastatin Calcium 40 mg 04/08/17 09:00 04/09/17 08:00 Lipitor PO 10/05/17 08:59 40 mg DAILY [facility] Bumetanide 6 mg 04/09/17 09:00 04/09/17 08:01 Bumex PO 10/06/17 08:59 6 mg DAILY [facility] Metoprolol Tartrate 12.5 mg 04/08/17 20:00 04/09/17 08:01 Lopressor PO 10/05/17 19:59 12.5 mg BID@ [facility] Laboratory Tests 04/07/17 04/07/17 04/07/17 16:30 16:30 20:47 INR Creatinine Troponin I 0.043 H 0.046 H NT-Pro-B Natriuret Pep 1080 H 04/08/17 04/09/17 04/09/17 11:10 04:00 04:00 INR 1.48 H Creatinine 0.8 Troponin I 0.056 H 0.063 H NT-Pro-B Natriuret Pep ICD10 Worksheet Patient Problems: Problems Problem Status Onset Intracranial hemorrhage Acute Hydrocephalus Acute Cellulitis Acute Sepsis Acute Fall Acute Skin tear Acute Syncope Acute Elevated troponin Acute Review of Systems - Review of Systems Constitutional: malaise. denies: chills, fever Respiratory: denies: shortness of breath Cardiac: chest pain. denies: edema, irregular heart rate, lightheadedness, palpitations, syncope Gastrointestinal/Abdominal: no symptoms reported Genitourinary: no symptoms Musculoskelatal: no symptoms Skin: no symptoms Neurological: no symptoms Hematologic/Lymphatic: no symptoms reported Immunologic/allergic: no symptoms reported
[2017-04-09] MEDS ORDERED: METOPROLOL TARTRATE 25 MG TAB PO ONE (11:00)
[2017-04-09] MEDS: FERROUS SULFATE 325 MG TAB PO SCH (11:32)
[2017-04-09] MEDS ORDERED: IOPAMIDOL (ISOVUE 370) 100 ML BTL IV ONE (13:29)
--- NOTE | 2017-04-09 17:04 | HOSPPROG ---
Hospitalist Progress Note Assessment/Plan: * Syncope -tele negative - ? mechanical vs. vasovagal vs. narcotics vs. PE * Tachycardia/pleuritic CP - check CTA rule out PE -INR subtherapeutic on chronic warfarin * Borderline trop - positive stress test in Dec - reversible ischemia anteriorly -continue medical management per cardiology - d/w Dr. Starkey -ECHO unchanged * h/o PE - INR subtherapeutic -bridge only if CTA + for acute PE * Chronic back pain - continuous narcotic dependency -restarted home oxycodone and monitor for effect * COPD with chronic respiratory failure - O2 * Afib * Possible UTI - E.coli -IV ceftriaxone * Elbow laceration s/p repair * Obesity BMI 38 Subjective: new pleuritic CP this am with productive cough Objective: Vital Signs Temp Pulse Resp BP Pulse Ox 37.1 C 80 21 H 151/88 H 84 L 04/09/17 15:46 04/09/17 15:46 04/09/17 15:46 04/09/17 15:46 04/09/17 15:46 Microbiology 04/07/17 21:15 Urine Culture - Final Urine,Clean Catch Escherichia Coli Laboratory Results 04/09/17 04:00 04/09/17 04:00 04/08/17 04/09/17 04/10/17 05:59 05:59 05:59 Intake Total 200 2000 Output Total 5 600 400 Balance 195 1400 -400 PT 17.9 SEC (12.0-15.0) H 04/09/17 04:00 INR 1.48 (0.83-1.16) H 04/09/17 04:00 - Physical Exam Constitutional: no apparent distress, appears nourished, not in pain Cardiovascular: regular rate and rhythym, no murmur, rub, or gallop Respiratory: no respiratory distress, no rales or rhonchi, clear to auscultation Gastrointestinal: normoactive bowel sounds, soft, non-tender abdomen, no palpable masses Skin: no rashes or abrasions, no fluctuance, no induration Neurologic: AAOx3, sensation intact bilaterally Psychiatric: interacting appropriately, not anxious, not encephalopathic, thought process linear ICD10 Worksheet Patient Problems: Problems Problem Status Onset Elevated troponin Acute Fall Acute Skin tear Acute Syncope Acute Cellulitis Acute Hydrocephalus Acute Intracranial hemorrhage Acute Sepsis Acute
[2017-04-09] MEDS ORDERED: WARFARIN SODIUM 2.5 MG TAB PO ONE (18:00)
[2017-04-09] MEDS ORDERED: WARFARIN SODIUM 2.5 MG TAB PO SCH (18:00)
[2017-04-09] MEDS: ACETAMINOPHEN 325 MG TAB PO PRN (21:06)
[2017-04-09] MEDS: METOPROLOL TARTRATE 50 MG TAB PO SCH (21:06)
[2017-04-10 06:52] LABS: % IMMATURE GRANULYOCYTES 0.6 % (0.0-1.1); ABSOLUTE IMMATURE GRANULOCYTES 0.06 10^3/uL (0.00-0.10); ADD DIFF? NO; ADD MORPH? NO; ADD SCAN? NO; ATYPICAL LYMPHOCYTE FLAG 0 (0-99); FRAGMENT RBC FLAG 0 (0-99); HEMATOCRIT 44.9 % (38.0-47.0); HEMOGLOBIN 13.7 g/dL (12.6-16.3); LEFT SHIFT FLG 0 (0-99); LIPEMIA HEMOLYSIS FLAG 80 (0-99); MEAN CELL HEMOGLOBIN 29.8 pg (27.9-34.1); MEAN CELL HEMOGLOBIN CONCENTR. 30.5 g/dL (32.4-36.7); MEAN CELL VOLUME 97.8 fL (81.5-99.8); MEAN PLATELET VOLUME 10.5 fL (8.7-11.7); PLATELET CLUMPS FLAG 10 (0-99); PLATELET COUNT 260 10^3/uL (150-400); RED BLOOD CELL COUNT 4.59 10^6/uL (4.18-5.33); RED CELL DISTRIBUTION WIDTH 15.2 % (11.5-15.2)
[2017-04-10 07:02] LABS: INR 1.67 (0.83-1.16); PROTIME(PATIENT) 19.7 SEC (12.0-15.0)
[2017-04-10] MEDS: LEVOTHYROXINE 75 MCG TAB PO SCH (07:09)
[2017-04-10 07:10] LABS: ANION GAP 11 mEq/L (8-16); CALCIUM 8.8 mg/dL (8.5-10.4); CARBON DIOXIDE 27 mEq/l (22-31); CHLORIDE 103 mEq/L (97-110); CREATININE 0.9 mg/dL (0.6-1.0); GLOMERULAR FILTRATION RATE > 60; GLUCOSE 85 mg/dL (70-100); POTASSIUM 4.3 mEq/L (3.5-5.2); SODIUM 141 mEq/L (134-144)
[2017-04-10] MEDS: Olodaterol Hcl [Striverdi Respimat] IH SCH (07:51)
[2017-04-10] MEDS: Trospium Chloride [Sanctura] 20 MG PO SCH ×2 (07:51→13:18)
[2017-04-10] MEDS: (Mometasone/Formoterol [Dulera 200 Mcg/5 Mcg Inhaler] IH SCH ×2 (07:51→13:18)
[2017-04-10] MEDS: oxyCODONE IR 5 MG TAB PO SCH ×4 (08:27→18:37)
[2017-04-10] MEDS: METOPROLOL TARTRATE 50 MG TAB PO SCH ×2 (08:27→21:01)
[2017-04-10] MEDS: BUMETANIDE 2 MG TAB PO SCH (08:28)
[2017-04-10] MEDS: GABAPENTIN 300 MG CAP PO SCH ×2 (08:28→21:00)
[2017-04-10] MEDS: CYANO/VITAMIN B12 1000 MCG TAB PO SCH (08:28)
[2017-04-10] MEDS: PANTOPRAZOLE SODIUM 40 MG TAB PO SCH ×2 (08:28→21:01)
[2017-04-10] MEDS: ATORVASTATIN CALCIUM 40 MG TAB PO SCH (08:29)
[2017-04-10] MEDS: CHOLECALCIFEROL VIT D3 1,000 UNITS TAB PO SCH (08:29)
[2017-04-10] MEDS: VENLAFAXINE XR 150 MG CAP PO SCH (08:29)
[2017-04-10] MEDS: TRIMETHOPRIM 100 MG TAB PO SCH (08:29)
--- NOTE | 2017-04-10 11:06 | PDIAF ---
- Diagnosis Diagnosis: syncope Code Status: Full Code - Medication Management Discharge Medications: Medications to Continue on Transfer Acetaminophen [Tylenol ES 500 mg (*)] 500 mg PO TID@0800,1200,199908/24/16 [ Last Taken 04/07/17 12:00] Albuterol [Proventil Inhaler HFA (*)] 2 puffs IH Q4H PRN 08/24/16 [Last Taken Unknown] Alendronate Sodium [Fosamax 70 MG (*)] 70 mg PO SA@0700 08/24/16 [Last Taken ] Atorvastatin Calcium [Lipitor 40 mg (*)] 40 mg PO DAILY 08/24/16 [Last Taken ] Bisacodyl [Dulcolax] 10 mg RC DAILY PRN 08/24/16 [Last Taken Unknown] Bumetanide [Bumex (*)] 6 mg PO DAILY 08/24/16 [Last Taken 04/03/17] Cholecalciferol Vit D3 [Vitamin D3 (*)] 2,000 units PO DAILY 08/24/16 [Last Taken 04/07/17] Gabapentin [Neurontin 300 MG (*)] 900 mg PO BID@08/24/16 [Last Taken 04/07 08:00] Ipratropium/Albuterol [Duoneb (*)] 3 ml IH Q4H PRN 08/24/16 [Last Taken Unknown] Levothyroxine [Synthroid 75 mcg (*)] 75 mcg PO DAILY06 08/24/16 [Last Taken ] Omeprazole 20 mg PO BID@08/24/16 [Last Taken 04/06/17] Venlafaxine HCl [Venlafaxine HCl ER] 300 mg PO DAILY 08/24/16 [Last Taken ] Cyanocobalamin [Vitamin B12 (*)] 1,000 mcg PO DAILY 04/07/17 [Last Taken ] Ferrous Sulfate [Ferrous Sulf 325 MG (*)] 325 mg PO DAILY@1200 04/07/17 [Last Taken 04/07/17] Herbals/Supplements -Info Only 1 ea PO DAILY 04/07/17 [Last Taken Unknown] Mometasone/Formoterol [Dulera 200 Mcg/5 Mcg Inhaler] 2 puffs IH BID@0800,1600 [Last Taken 04/07/17 08:00] Nitroglycerin [Nitrostat 0.4 mg (*)] 0.4 mg SL Q5M PRN 04/07/17 [Last Taken Unknown] Olodaterol HCl [Striverdi Respimat] 2 puffs IH DAILY 04/07/17 [Last Taken ] Sennosides 8.6 mg PO Q12 PRN 04/07/17 [Last Taken 03/29/17] TROSPIUM CHLORIDE [SANCTURA] 20 mg PO BID@0800,1600 04/07/17 [Last Taken 08:00] Trimethoprim 100 mg PO DAILY 04/07/17 [Last Taken 04/07/17] oxyCODONE IR [Oxycodone Ir (*)] 5 mg PO DAILY@2200 PRN 04/07/17 [Last Taken 06/07] oxyCODONE IR [Oxycodone Ir (*)] 5 mg PO QID@08,10,14,18 04/07/17 [Last Taken 14:00] Amoxicillin/Clavulanate Pot [Augmentin 875 MG TAB (*)] 875 mg PO BID #10 tab [Last Taken Unknown] Metoprolol Tartrate [Lopressor 50 mg (*)] 50 mg PO BID #60 tab 04/10/17 [Last Taken Unknown] Warfarin Sodium [Coumadin 2.5MG (*)] 3.75 mg PO DAILY #30 tab 04/10/17 [Last Taken Unknown] Snf Antibiotic Stop Date: 04/15/17 Discharge Medications: Refer to the Discharge Home Medication list for PRN reason. - Orders Services needed: Physical Therapy, Occupational Therapy Oxygen: Portable tank for mobility Diet Recommendation: no restrictions on diet Diet Texture: Regular Texture Diet, Thin Liquids, Meds Whole in Puree - Labs/Radiology PT/INR Date: 04/13/17 (04/16/17 & 04/20/17) - Follow Up Care Current Providers and Referrals: [facility] [Primary Care Provider] - As per Instructions
[2017-04-10] MEDS: FERROUS SULFATE 325 MG TAB PO SCH (12:50)
[2017-04-10] MEDS: WARFARIN SODIUM 2.5 MG TAB PO SCH (15:31)
--- NOTE | 2017-04-10 15:44 | HOSPPROG ---
Hospitalist Progress Note Assessment/Plan: * Syncope -tele negative - ? mechanical vs. vasovagal vs. narcotics vs. UTI * Tachycardia/pleuritic CP - no PE on CTA -INR subtherapeutic on chronic warfarin -no bridge given lack of acute PE on CT * Borderline trop - positive stress test in Dec - reversible ischemia anteriorly -continue medical management per cardiology -ECHO unchanged * h/o PE - INR subtherapeutic -increase warfarin * Chronic back pain - continuous narcotic dependency -restarted home oxycodone and monitor for effect * COPD with chronic respiratory failure - O2 * Afib * Possible UTI - E.coli -IV ceftriaxone * Elbow laceration s/p repair * Obesity BMI 38 Subjective: No new complaints. Didn't want to go to SNF but [facility] thinks too weak to return there Objective: Vital Signs Temp Pulse Resp BP Pulse Ox 36.9 C 85 20 108/73 95 04/10/17 14:49 04/10/17 14:49 04/10/17 14:49 04/10/17 14:49 04/10/17 14:49 Laboratory Results 04/10/17 06:40 04/10/17 06:40 04/09/17 04/10/17 04/11/17 05:59 05:59 05:59 Intake Total 2000 900 640 Output Total 600 400 450 Balance 1400 500 190 PT 19.7 SEC (12.0-15.0) H 04/10/17 06:40 INR 1.67 (0.83-1.16) H 04/10/17 06:40 - Physical Exam Constitutional: no apparent distress, appears nourished, not in pain Cardiovascular: regular rate and rhythym, no murmur, rub, or gallop, edema (1+) Respiratory: no respiratory distress, no rales or rhonchi, clear to auscultation Gastrointestinal: normoactive bowel sounds, soft, non-tender abdomen, no palpable masses Skin: no rashes or abrasions, no fluctuance, no induration Neurologic: AAOx3, sensation intact bilaterally Psychiatric: interacting appropriately, not anxious, not encephalopathic, thought process linear ICD10 Worksheet Patient Problems: Problems Problem Status Onset Elevated troponin Acute Fall Acute Skin tear Acute Syncope Acute Cellulitis Acute Hydrocephalus Acute Intracranial hemorrhage Acute Sepsis Acute
[2017-04-10] MEDS ORDERED: WARFARIN SODIUM 2.5 MG TAB PO ONE (16:00)
[2017-04-10] MEDS ORDERED: ALBUTEROL 3 ML DEYVIAL ONE (16:51)
[2017-04-11 04:26] VITALS: TEMP 98.1
[2017-04-11] MEDS: LEVOTHYROXINE 75 MCG TAB PO SCH (06:28)
[2017-04-11 06:51] LABS: INR 1.96 (0.83-1.16); PROTIME(PATIENT) 22.4 SEC (12.0-15.0)
[2017-04-11 07:56] VITALS: BP 159/84; PULSE 104; RESP 19; O2SAT 95
[2017-04-11] MEDS: VENLAFAXINE XR 150 MG CAP PO SCH (09:51)
[2017-04-11] MEDS: TRIMETHOPRIM 100 MG TAB PO SCH (09:52)
[2017-04-11] MEDS: ATORVASTATIN CALCIUM 40 MG TAB PO SCH (09:52)
[2017-04-11] MEDS: oxyCODONE IR 5 MG TAB PO SCH (09:52)
[2017-04-11] MEDS: CYANO/VITAMIN B12 1000 MCG TAB PO SCH (09:53)
[2017-04-11] MEDS: CHOLECALCIFEROL VIT D3 1,000 UNITS TAB PO SCH (09:53)
[2017-04-11] MEDS: GABAPENTIN 300 MG CAP PO SCH (09:53)
[2017-04-11] MEDS: METOPROLOL TARTRATE 50 MG TAB PO SCH (09:54)
[2017-04-11] MEDS: BUMETANIDE 2 MG TAB PO SCH (09:54)
[2017-04-11] MEDS: PANTOPRAZOLE SODIUM 40 MG TAB PO SCH (09:54)
[2017-04-11] MEDS: (Mometasone/Formoterol [Dulera 200 Mcg/5 Mcg Inhaler] IH SCH (10:03)
[2017-04-11] MEDS: Olodaterol Hcl [Striverdi Respimat] IH SCH (10:03)
[2017-04-11] MEDS: Trospium Chloride [Sanctura] 20 MG PO SCH (10:09)
--- NOTE | 2017-04-11 23:55 | GDS ---
[f rep st] DISCHARGE SUMMARY DISCHARGE DIAGNOSES: 1. Syncope, suspect mechanical fall versus vasovagal versus urinary tract infection. 2. Urinary tract infection, Escherichia coli. 3. History of pulmonary embolus with subtherapeutic INR. 4. Positive cardiac stress test on medical management. 5. Chronic obstructive pulmonary disease with chronic respiratory failure on chronic oxygen. 6. Atrial fibrillation. 7. Elbow laceration status post repair. 8. Obesity, BMI 38. 9. Chronic back pain with continuous narcotic dependency. HISTORY: The patient is an 81-year-old female who lives at [facility] when she was o n the commode and had a mechanical fall versus a syncopal event. Her tele was watched here and was continuously unremarkable. She does have a history of pulmonary embolus and was subtherapeutic with her INR on presentation, so did get a CTA for PE which was negative. Her warfarin was increased. She did have a borderline troponin elevation, has a known positive stress test last August with re versible ischemia anteriorly. Cardiology was consulted, and they did not think this presentation wa s symptomatic of coronary disease and did not pursue cardiac catheterization. Her echocardiogram wa s unchanged. She was found to have a urinary tract infection with E coli and was treated with IV ceftriaxone here . She will complete a course of oral Augmentin upon discharge. DISCHARGE MEDICATIONS: Please see computer record for full detailed list. New medication: 1. Augmentin 875 mg p.o. b.i.d. for 5 more days. 2. Cardiology increased her metoprolol to 50 mg p.o. twice b.i.d. 3. Warfarin increased to 3.75 mg p.o. daily. ADDITIONAL DISCHARGE INSTRUCTIONS: 1. Discharged to [facility] for rehabilitation and strengthening prior to r eturning to [facility]. 2. PT/INR laboratory studies to be done there regularly until INR stabilized on warfarin therapy. Greater than 30 minutes' time was spent arranging this discharge. Patient was seen and examined by me on day of discharge. /[id number]/MODL
== END 2017-04-11 11:11 | DRG 312 ==
LOC: EDUNIT# → OBSVTOIN 17:36 → F2W 19:57
PROVIDERS: ADMIT Internal Medicine; ATTEND Internal Medicine
PROC: 02HV33Z Insertion of Infusion Device into Superior Vena Cava, Percutaneous Approach (ICD-10-PCS; principal; 2017-04-09)
DX: R55 Syncope and collapse (principal); N39.0 Urinary tract infection, site not specified; J96.10 Chronic respiratory failure, unspecified whether with hypoxia or hypercapnia; B96.20 Unspecified Escherichia coli [E. coli] as the cause of diseases classified elsewhere; J44.9 Chronic obstructive pulmonary disease, unspecified; I48.91 Unspecified atrial fibrillation; S51.011A Laceration without foreign body of right elbow, initial encounter; W18.12XA Fall from or off toilet with subsequent striking against object, initial encounter; Y93.E1 Activity, personal bathing and showering; Y92.121 Bathroom in nursing home as the place of occurrence of the external cause; I10 Essential (primary) hypertension; E03.9 Hypothyroidism, unspecified; G89.29 Other chronic pain; E78.5 Hyperlipidemia, unspecified; Z68.38 Body mass index [BMI] 38.0-38.9, adult; Z86.711 Personal history of pulmonary embolism; Z99.81 Dependence on supplemental oxygen; Z79.01 Long term (current) use of anticoagulants; Z87.891 Personal history of nicotine dependence
CPT/HCPCS: 92610-GN; 97112-GP; 97116-GP; 97162-GP; 97166-GO; 97530-GP; C1751; G8987-GO-CJ; G8988-GO-CI; J0696; Q9967

== ENCOUNTER 2018-03-12 15:16 | Observation (INO) | payer OTHER, MEDICAID ==
--- NOTE | 2018-03-12 15:17 | EDPHY ---
H & P Time Seen by Provider: 03/12/18 15:17 - Medical/Surgical History Hx Asthma: No Hx Chronic Respiratory Disease: Yes Hx Diabetes: No Hx Cardiac Disease: Yes Hx Renal Disease: No Hx Cirrhosis: No Hx Alcoholism: No Hx HIV/AIDS: No Hx Splenectomy or Spleen Trauma: No Other PMH: PE 2012, traumatic intracranial hemorrhage, COPD, hypertension, neuropathy, anxiety, chronic pain, wears 3L at home all times, wound to LLE getting treated now - Social History Smoking Status: Former smoker Allergies/Adverse Reactions: amitriptyline [Amitriptyline] Allergy (Unknown, Verified 08/29/16 15:27) Tetracyclines Allergy (Unknown, Verified 04/04/16 17:00) tiotropium bromide [From Spiriva with HandiHaler] Allergy (Unknown, Verified 17:00) celecoxib Allergy (Verified 04/04/16 17:00) ciprofloxacin Allergy (Verified 08/29/16 15:27) rofecoxib Allergy (Verified 04/04/16 17:00) Home Medications: Medication Instructions Recorded Acetaminophen [Tylenol ES 500 mg 500 mg PO TID@0800,1200,2000 08/24/16 (*)] Albuterol [Proventil Inhaler HFA 2 puffs IH Q4H PRN 08/24/16 (*)] Alendronate Sodium [Fosamax 70 MG 70 mg PO SA@0700 08/24/16 (*)] Atorvastatin Calcium [Lipitor 40 40 mg PO DAILY 08/24/16 mg (*)] Bisacodyl [Dulcolax] 10 mg RC DAILY PRN 08/24/16 Bumetanide [Bumex (*)] 6 mg PO DAILY 08/24/16 Cholecalciferol Vit D3 [Vitamin D3 2,000 units PO DAILY 08/24/16 (*)] Gabapentin [Neurontin 300 MG (*)] 900 mg PO BID@08,20 08/24/16 Ipratropium/Albuterol [Duoneb (*)] 3 ml IH Q4H PRN 08/24/16 Levothyroxine [Synthroid 75 mcg 75 mcg PO DAILY06 08/24/16 (*)] Omeprazole 20 mg PO BID@08,20 08/24/16 Venlafaxine HCl [Venlafaxine HCl 300 mg PO DAILY 08/24/16 ER] Cyanocobalamin [Vitamin B12 (*)] 1,000 mcg PO DAILY 04/07/17 Ferrous Sulfate [Ferrous Sulf 325 325 mg PO DAILY@1200 04/07/17 MG (*)] Herbals/Supplements -Info Only 1 ea PO DAILY 04/07/17 Mometasone/Formoterol [Dulera 200 2 puffs IH BID@0800,1600 04/07/17 Mcg/5 Mcg Inhaler] Nitroglycerin [Nitrostat 0.4 mg 0.4 mg SL Q5M PRN 04/07/17 (*)] Olodaterol HCl [Striverdi Respimat] 2 puffs IH DAILY 04/07/17 Sennosides 8.6 mg PO Q12 PRN 04/07/17 TROSPIUM CHLORIDE [SANCTURA] 20 mg PO BID@0800,1600 04/07/17 Trimethoprim 100 mg PO DAILY 04/07/17 oxyCODONE IR [Oxycodone Ir (*)] 5 mg PO DAILY@2200 PRN 04/07/17 oxyCODONE IR [Oxycodone Ir (*)] 5 mg PO QID@08,10,14,18 04/07/17 Amoxicillin/Clavulanate Pot 875 mg PO BID #10 tab 04/10/17 [Augmentin 875 MG TAB (*)] Metoprolol Tartrate [Lopressor 50 50 mg PO BID #60 tab 04/10/17 mg (*)] Warfarin Sodium [Coumadin 2.5MG 3.75 mg PO DAILY #30 tab 04/10/17 (*)] Medical Decision Making ED Course/Re-evaluation: CHIEF COMPLAINT: HISTORY OF PRESENT ILLNESS: must have 4 elements: Location, Quality, Severity , Duration, Timing, Context, Modifying Factors, Associated Signs and Symptoms REVIEW OF SYSTEMS: A 10 point review of systems was performed and is negative with the exception of the elements mentioned in the history of present illness. PHYSICAL EXAM: HR, BP, O2 Sat, RR. Temp noted General Appearance: Alert, well hydrated, appropriate, and non-toxic appearing. Head: Atraumatic without scalp tenderness or obvious injury Eyes: Pupils equal, round, reactive to light and accommodation, EOMI, no trauma , no injection. Ears: Clear bilaterally, no perforation, normal landmarks Nose: Atraumatic, no rhinorrhea, clear. Throat: There is no erythema or exudates, no lesions, normal tonsils, mucus membranes moist. Neck: Supple, 2+ carotid upstroke, nontender, no lymphadenopathy. Respiratory: No retractions, no distress, no wheezes, and no accessory muscle use. Lungs are clear to auscultation bilaterally. Cardiovascular: Regular rate and rhythm, no murmurs, rubs, or gallops. Bilateral carotid, radial, dorsalis pedis, and posterior tibial pulses intact. Good capillary refill all extremities. Gastrointestinal: Abdomen is soft, nontender, non-distended, no masses, no rebound, no guarding, no peritoneal signs. Musculoskeletal: Normal active ROM of all extremities, atraumatic. Neurological: Alert, appropriate, and interactive. The patient has normal DTRs and non-focal cranial nerves, motor, sensory, and cerebellar exam. Skin: No rashes, good turgor, no nodules on palpation. Past medical history: Past surgical history: Family history: Social history: DIAGNOSTICS/PROCEDURES/CRITICAL CARE TIME: DIFFERENTIAL DIAGNOSIS: MEDICAL DECISION MAKING:
--- NOTE | 2018-03-12 15:22 | EDPHY ---
HPI/HX/ROS/PE/MDM Narrative: CHIEF COMPLAINT: Dyspnea, hypoxemia HPI: The patient is an 82 y/o female with end-stage COPD currently in hospice care arriving via EMS for worsening dyspnea from baseline this morning. Staff found her diaphoretic with increased [id number] and contacted EMS at the request of the patient's daughter who reportedly revoked hospice care so she could be transported here. EMS found her hypoxemic at 70% on her normal 3LPM of O2, tachycardic, and speaking with 2-3-word dyspnea. Her symptoms improved with a non-rebreather en route, but she continues to feel like she's breathing very shallowly and is fatigued. She also complained of a productive cough with green phlegm to EMS. No recent fever. Further history from patient limited due to dyspnea. REVIEW OF SYSTEMS: Aside from elements discussed in the HPI, a comprehensive 10-point review of systems was reviewed and is negative. PMH: COPD, anxiety, chronic pain, neuropathy, hypertension, anemia, UTIs SOCIAL HISTORY: [facility], on hospice/DNR, daughter is involved in medical decisions and lives [id number]. PHYSICAL EXAM: General:Patient is alert, fatigued-appearing, in respiratory distress. SpO2 97% on NRB. ENT:Eyes are normal to inspection. ENT inspection normal. Neck: Normal inspection. Full range of motion. Respiratory: Breath sounds diminished but present bilaterally. 2-3-word dyspnea. Increased respiratory effort. Cardiovascular: Tachycardic regular rate and rhythm. Strong peripheral pulses. Normal cap refill. Abdomen:The abdomen is nontender to palpation. There are no peritoneal signs. Back: Normal to inspection. No tenderness to palpation. Skin: Normal color. No rash. Warm and dry. Extremities: Normal appearance. Full range of motion. Neuro: Oriented x3. Normal motor function. Normal sensory function. ED Course: This is a [id number] 82 y/o female with COPD and DNR status on hospice care who presents with hypoxemia and respiratory distress. Initial SpO2 on her baseline 3LPM on scene was 70%; this improved en route on non-rebreather , but she is still dyspneic and tachycardic on arrival here. She is unable to provide much history at this moment due to dyspnea. [facility]OST form transported with patient says: no CPR, selective treatment only, no artificial nutrition, discussed with and signed by patient 09/15/17. Plan for bipap, IV, labs, EKG, chest x-ray, case management consultation. The 12 lead EKG was interpreted by myself. Sinus tachycardia. See hard copy and/ or "tracemaster" electronic copy for interpretation. 1554: Spoke with long term care social worker with [facility], who wants to establish is patient has decision-making capacity as the patient's daughter wants to revoke hospice status. On reassessment, patient is on bipap and still dyspneic and staff is still attempting to get an IV. I'm unable to hold much conversation with her at the moment due to this. mobile product manager, Rosalie, spoke with hospice care and patient's daughter, Rosanne. The daughter said "I want her to be resuscitated but not intubated. If her heart stops I want you to provide CPR, but she doesn't want to be on a ventilator or to have other life-saving measures" like intubation. The daughter would like her to be treated with supportive care like antibiotics and be admitted to the hospital if needed, even if it leads to revocation of her hospice. The daughter seemed to have confusion about patient's condition being terminal. [facility] faxed over forms including AND (Allow Natural ) form that was signed by the patient on 03/05/18 (7 days ago) and specifies "if I stop breathing or my heart stops beating, no attempt will be made to restart my heart or artificially breathe for me." Troponin elevated 0.21. Spoke with hospitalist service. Dr. Estrada accepts admission. Chest x-ray: nothing acute. Critical care time spent by me, Dr. Dimas, exclusively with this patient was 90 minutes, exclusive of PA time and exclusive of procedures. The organ system at risk was pulmonary. Time spent in serial assessments of the patient; multiple frequent discussions with hospice care, case management, and hospitalist service; consideration of interventions; review of labs, imaging, and EKG. - Data Points Imaging Results: Imaging Impressions Chest X-Ray 03/12/18 16:25 Impression: Negative portable chest x-ray. Imaging: I viewed and interpreted images myself Laboratory Results: Laboratory Results 03/12/18 16:10 03/12/18 16:10 03/12/18 03/12/1803/12/18 16:10 16:10 16:10 WBC 15.64 10^3/uL H 10^3/uL (3.80-9.50) RBC 4.73 10^6/uL 10^6/uL (4.18-5.33) Hgb 15.0 g/dL g/dL (12.6-16.3) Hct 47.8 % H % (38.0-47.0) MCV 101.1 fL H fL (81.5-99.8) MCH 31.7 pg pg (27.9-34.1) MCHC 31.4 g/dL L g/dL (32.4-36.7) RDW 15.1 % % (11.5-15.2) Plt Count 249 10^3/uL 10^3/uL (150-400) MPV 11.9 fL H fL (8.7-11.7) Neut % (Auto) Not Reported Lymph % (Auto) Not Reported Irion % (Auto) Not Reported Eos % (Auto) Not Reported Baso % (Auto) Not Reported Nucleat RBC Rel Count Not Reported Absolute Neuts (auto) Not Reported Absolute Lymphs (auto) Not Reported Absolute Monos (auto) Not Reported Absolute Eos (auto) Not Reported Absolute Basos (auto) Not Reported Absolute Nucleated RBC Not Reported Immature Gran % Not Reported Seg Neutrophils % 69.0 % % Band Neutrophils % 9.0 % % Lymphocytes % 7.0 % % Monocytes % 15.0 % % Eosinophils % 0 % % Basophils % 0 % % Metamyelocytes % 0 % % Myelocytes % 0 % % Promyelocytes % 0 % % Blast Cells % 0 % % Immature Gran # Not Reported Absolute Seg Neuts 10.79 10^/uL H 10^/uL (1.70-6.50) Absolute Band Neuts 1.41 10^3/uL H 10^3/uL (0.00-0.70) Absolute Lymphocytes 1.09 10^3/uL 10^3/uL (1.00-3.00) Absolute Monocytes 2.35 10^3/uL H 10^3/uL (0.30-0.80) Absolute Eosinophils 0.00 10^3/uL L 10^3/uL (0.03-0.40) Absolute Basophils 0.00 10^3/uL L 10^3/uL (0.02-0.10) Absolute Metamyelocyte 0.00 10^3/mL 10^3/mL (0.00-0.00) Absolute Myelocytes 0.00 10^3/mL 10^3/mL (0.00-0.00) Absolute Promyelocytes 0.00 10^3/uL 10^3/uL (0.00-0.00) Absolute Plasma Cells 0.00 10^3/uL 10^3/uL (0.00-0.00) Absolute Blast Cells 0.00 10^3/uL 10^3/uL (0.00-0.00) Plasma Cells % 0 % % Platelet Estimate ADEQUATE (ADEQ) Oval Macrocytes 1+ H Smear Review By Pending D-Dimer 0.71 ug/mLFEU H ug/mLFEU (0.00-0.50) Puncture Site VBG pH VBG HCO3 VBG Total CO2 VBG O2 Saturation VBG Base Excess Mixed VBG pCO2 Mixed VBG pO2 Sodium 143 mEq/L mEq/L (135-145) Potassium 5.5 mEq/L H mEq/L (3.3-5.0) Chloride 97 mEq/L mEq/L (97-110) Carbon Dioxide 29 mEq/l mEq/l (22-31) Anion Gap 17 mEq/L H mEq/L (8-16) BUN 25 mg/dL H mg/dL (7-23) Creatinine 1.2 mg/dL H mg/dL (0.6-1.0) Estimated GFR 43 Glucose 126 mg/dL H mg/dL (70-100) Calcium 9.6 mg/dL mg/dL (8.5-10.4) POC Troponin I NT-Pro-B Natriuret Pep 97960 pg/mL H pg/mL (0-450) Specimen Hemolysis 127 03/12/18 03/12/18 16:09 16:08 WBC RBC Hgb Hct MCV MCH MCHC RDW Plt Count MPV Neut % (Auto) Lymph % (Auto) Irion % (Auto) Eos % (Auto) Baso % (Auto) Nucleat RBC Rel Count Absolute Neuts (auto) Absolute Lymphs (auto) Absolute Monos (auto) Absolute Eos (auto) Absolute Basos (auto) Absolute Nucleated RBC Immature Gran % Seg Neutrophils % Band Neutrophils % Lymphocytes % Monocytes % Eosinophils % Basophils % Metamyelocytes % Myelocytes % Promyelocytes % Blast Cells % Immature Gran # Absolute Seg Neuts Absolute Band Neuts Absolute Lymphocytes Absolute Monocytes Absolute Eosinophils Absolute Basophils Absolute Metamyelocyte Absolute Myelocytes Absolute Promyelocytes Absolute Plasma Cells Absolute Blast Cells Plasma Cells % Platelet Estimate Oval Macrocytes Smear Review By D-Dimer Puncture Site VENOUS VBG pH 7.16 L* (7.31-7.42) VBG HCO3 29 mEQ/L H mEQ/L (22-26) VBG Total CO2 32 mEq/L H mEq/L (21-27) VBG O2 Saturation 75 % % (65-75) VBG Base Excess -2.5 mEq/L mEq/L (-2.5-2.5) Mixed VBG pCO2 84 mmHg H mmHg (40-44) Mixed VBG pO2 49 mmHG H mmHG (35-40) Sodium Potassium Chloride Carbon Dioxide Anion Gap BUN Creatinine Estimated GFR Glucose Calcium POC Troponin I 0.21 ng/mL H ng/mL (0.00-0.08) NT-Pro-B Natriuret Pep Specimen Hemolysis Point of Care Test Results: Chemistry 03/12/18 16:09 POC Troponin I 0.21 ng/mL H ng/mL (0.00-0.08) General Time Seen by Provider: 03/12/18 15:17 Initial Vital Signs: Initial Vital Signs Temperature (C) 36.5 C 03/12/18 15:24 Heart Rate 110 H 03/12/18 15:24 Respiratory Rate 18 03/12/18 15:24 Blood Pressure 132/92 H 03/12/18 15:24 O2 Sat (%) 97 03/12/18 15:24 O2 Delivery Mode Nasal Cannula O2 (L/minute) 4 Allergies/Adverse Reactions: amitriptyline [Amitriptyline] Allergy (Unknown, Verified 08/29/16 15:27) Tetracyclines Allergy (Unknown, Verified 04/04/16 17:00) tiotropium bromide [From Spiriva with HandiHaler] Allergy (Unknown, Verified 17:00) celecoxib Allergy (Verified 04/04/16 17:00) ciprofloxacin Allergy (Verified 08/29/16 15:27) rofecoxib Allergy (Verified 04/04/16 17:00) Departure - Departure Disposition: [facility] Inpatient Acute Clinical Impression: Hypoxemia, Hospice care patient COPD (chronic obstructive pulmonary disease) Qualifiers: COPD type: unspecified COPD Qualified Code(s): J44.9 - Chronic obstructive pulmonary disease, unspecified Respiratory failure Qualifiers: Chronicity: chronic Respiratory failure complication: hypoxia Qualified Code(s) : J96.11 - Chronic respiratory failure with hypoxia Report Scribed for: Loki Dimas Report Scribed by: Hannah Gallegos Date of Report: 03/12/18 Time of Report: 15:22 Physician Review and Approval Statement: Portions of this note were transcribed by an ED scribe. I personally performed the history, physical exam, and medical decision making; and confirm the accuracy of the information in the transcribed note.
--- NOTE | 2018-03-12 15:44 | CPEKG ---
Heart Rate: 110 RR Interval: 545 P-R Interval: 148 QRSD Interval: 70 QT Interval: 352 QTC Interval: 477 P Lincoln: 68 QRS Lincoln: 4 T Wave Lincoln: 44 EKG Severity - ABNORMAL ECG - EKG Impression: SINUS TACHYCARDIA EKG Impression: PROBABLE LEFT ATRIAL ABNORMALITY EKG Impression: LOW VOLTAGE THROUGHOUT EKG Impression: BORDERLINE R WAVE PROGRESSION, ANTERIOR LEADS Electronically Signed By: Maycol Terrazas 15-Mar-2018 02:39:56
[2018-03-12 16:23] LABS: PLATELET COUNT 249 10^3/uL (150-400)
[2018-03-12] MEDS ORDERED: HALOPERIDOL LACT 5 MG/ML INJ IVP PRN (17:51)
[2018-03-12] MEDS ORDERED: ONDANSETRON 4 MG/2 ML VIAL IVP PRN (17:51)
[2018-03-12] MEDS ORDERED: ONDANSETRON DISINTEGRATING 4 MG TAB PO PRN (17:51)
[2018-03-12] MEDS ORDERED: ACETAMINOPHEN 325 MG TAB PO PRN (17:51)
[2018-03-12] MEDS ORDERED: HALOPERIDOL 0.5 MG TAB PO PRN (17:51)
[2018-03-12] MEDS ORDERED: LORazepam 1 MG TAB PO PRN (17:51)
[2018-03-12] MEDS ORDERED: IPRATROPIUM/ALBUTEROL 3 ML DEYVIAL IH PRN (17:53)
[2018-03-12 18:33] VITALS: BP 146/113
--- NOTE | 2018-03-12 18:40 | ASMTCMCOM ---
CM Note CM Note Notes: Pt presented to the ED via EMS from her Assisted Living apartment at [facility] for dyspnea, diaphoresis, hypoxemia, and difficulty speaking. Pt has been enrolled w/[facility] ([phone]) since 03/05/18 for end-stage COPD. Pt's daughter and MDPOA, Rosanne Pardo, requested that [facility] call 911 and send patient to the ED. Rosanne had also been in communication w/[facility] and was explained that pt would be temporarily revoked from hospice if she were to be admitted. This CM spoke irvni/Meredith, millinery salesperson at [facility] and she states one of their RNs saw patient this morning and had written for new orders (including morphine; these new orders had not made it onto pt's med list yet), but they were not going to be filled until tonight. On arrival to the ED, there was confusion as to whether pt is a DNR or not, despite a MOST (pt signed in 09/15/2017) form being sent from [facility] that states pt is a DNR w/selective treatment and [facility] faxed over their A-N-D (All Natural ) form that pt signed on 03/05/18. After much discussion w/Rosanne, ED MD, Otis, and [facility]; it has been determined that yes, patient is a DNR and Rosanne wants to honor the patient's choice to be a DNR. Rosanne lives in [place] and there is definite need for increased communication/education re: pt's overall condition/status (per Adriana, [employer] General Supervisor at [facility], Rosanne has not been out to [place] for 2-3 years), what being on hospice means, etc. ED MD and this CM attempted to provide as much of that as possible over the phone. Ultimately, because of pt's dyspnea and decreased ability to speak or verbally communicate decisions, ED MD spoke w/ Rosanne and she has decided she doesn't want pt to return home on hospice yet, and would like her admitted for comfort care. This CM spoke w/Adriana, [employer] General Supervisor at [facility] ([phone]) and relayed this info; Adriana states that the only way they could accept pt back into [facility] is if she returns on hospice. This CM called Meredith at [facility] in order to update but had to leave a message. Pt has another daughter, Evelia, and granddaughter, Tia, who live locally but per Rosanne, she will reach out to them if needed; otherwise Evelia should not be involved unless the patient wants her contacted. Rosanne reports that pt recently was at [facility] last week or so and d/c'd to rehab ([facility]?). Per Rosanne, Evelia showed up at the rehab facility and convinced staff that she was the pt's POA and requested that pt's pain medications be titrated down significantly. If pt stabilizes, anticipate DC back to [facility] or be transferred to a [facility]. CM to follow. Date Signed: 03/12/2018 06:39 PM Electronically Signed By:Rosalie Mora RN
--- NOTE | 2018-03-12 18:41 | ASMTLACE ---
NATHANAEL Acuity / Level of Answers: No Care: Did the patient have an inpatient admission? Comorbidities - select Answers: Chronic pulmonary disease all that apply Opioid dependence / Chronic pain Other Notes: Hospice for End-Stage COPD; HTN; UTIs, Anemia , n europathy # of Emergency department Answers: 1-2 visits in the last 6 months Social determinants Answers: Mental health diagnosis (anxiety, depression, pers onality disorders, etc.) Score: 11 Date Signed: 03/12/2018 06:40 PM Electronically Signed By:Rosalie Mora RN
--- NOTE | 2018-03-12 20:39 | GHP ---
[f rep st] HISTORY AND PHYSICAL DATE OF ADMISSION: 03/12/2018 CHIEF COMPLAINT: Worsening respiratory status. HISTORY OF PRESENT ILLNESS: The patient is an 82-year-old female with a history of end-stage COPD, who has been on [facility] hosp[facility] care at her home at [facility] when she had worsening respiratory symptoms today. At that time, apparently her daughter in [place] wished to revoke hospice services and have her brought to the emergency department. In the emergency department, she initially required 8 L of oxygen and was placed on BiPAP soon after arrival. A blood gas was drawn and her pH was 7.16 with a pCO2 on venous blood gas of 84. Chest x-ray revealed no acute changes. The emergency department's staff physician and social service director discussed the case with [facility] and the patient's daughter. The daughter initially wished for her to continue to receive aggressive care in the form of BiPAP. Ultimately it was decided by her daughter in [place] and Dr. Dimas in the ED that she would be admitted for comfort care measures. She arrives with a DNR directive stating "allow natural " with comfort support. This further states that if she stops breathing or her heart stops, that no attempts should be made to restart her heart or artificially breathe for her, specifically noting no CPR, defibrillation, or chest compressions. This was signed on March 05, 2018, by the patient in the presence of a hospice provider. Ultimately, the daughter wished for the patient to be admitted to the hospital for further comfort measures as she nears the end of life from end-stage COPD. PAST MEDICAL HISTORY: 1. Chronic hypoxemic respiratory failure secondary to COPD. 2. Diastolic heart failure. 3. Hypertension. 4. Hypothyroidism. 5. Atrial fibrillation. 6. Recurrent pulmonary embolism. 7. History of subdural hematoma. 8. Chronic pain. 9. Recurrent UTIs. SURGICAL HISTORY: 2 lumbar surgeries, knee surgery, colostomy and takedown for colon abscess, carpal tunnel bilaterally, hysterectomy, 2 abdominal surgeries. MEDICATIONS: Please see [employer] completed outpatient medication list. ALLERGIES: Amitriptyline, tetracycline, tiotropium, celecoxib, ciprofloxacin, and rofecoxib. FAMILY HISTORY: Her mother had breast cancer. SOCIAL HISTORY: The patient has been mostly wheelchair bound, but has previously ambulated with a walker. She lives at [facility]. She has a 50 pack-year tobacco history. No alcohol or illicit drugs. REVIEW OF SYSTEMS: A 10-point review of systems performed negative except as per HPI. OBJECTIVE: VITAL SIGNS: Temperature is 35.7, blood pressure 146/113, heart rate 100-114, respiratory rate 24, 99% on 8 L of oxygen. GENERAL: The patient is nonverbal, in mild respiratory distress with respiratory secretions noted. HEENT: Head is atraumatic, normocephalic. Pupils equal, round, react to light. Extraocular movements intact. Oropharynx is notable for secretions. Mucous membranes are dry. NECK: Supple. There is no JVD. HEART: Tachycardic rate. LUNGS: Reveal diminished breath sounds bilaterally. ABDOMEN : Soft, nondistended, nontender. Normoactive bowel sounds. EXTREMITIES: Without cyanosis, clubbing, edema. NEUROLOGIC: Grossly nonfocal. LABORATORY DATA: CBC reveals a white blood cell count of 15.6, with 69% segs, and 9% bands. D-dimer 0.71, which is below her age adjusted D-dimer. PH on venous blood gas is 7.16, with a pCO2 of 84, and PO2 49. Basic metabolic panel reveals a potassium of 5.5, creatinine 1.2, BUN 25, anion gap 17. NT proBNP is 12,000. Troponin 0.2. IMAGING: Chest x-ray performed in the emergency department shows no focal infiltrate or acute cardiopulmonary abnormality. ASSESSMENT AND PLAN: The patient is an 82-year-old female with history of end- stage chronic obstructive pulmonary disease, who has been on [facility], and was transported to the emergency department with deteriorating condition at the request of her daughter, who has medical power of assistant district attorney. 1. Acute on chronic hypoxemic respiratory failure secondary to end-stage chronic obstructive pulmonary disease. On arrival, she is quite acidemic with a pH of 7.16. She appears near the end of life. She recently completed paperwork to allow natural with comfort support dated March 05, 2018. It is my opinion that it is unethical to reverse this decision that she made within the past week, and I believe we should honor her choice to be maintained on comfort care during her end-of-life phase. Per the discussion with Dr. Dimas in the emergency department, and her daughter, everyone agrees to proceed with comfort care measures, though her daughter wishes for her to stay in the hospital for this level of support. BiPAP is discontinued. She will receive p.r.n. nebulizers for comfort as well as Roxanol for air hunger, p.r.n. Ativan and Haldol for agitation if needed. I suspect she is within 24-48 hours of passing away, and will provide comfort care here in the hospital setting. 2. Code status: Patient is Do Not Resuscitate. 3. Disposition: Patient is observation status as I anticipate the end of life possibly within 24 hours. Should her condition plateau, we could consider returning her to [facility] for ongoing hospice care versus inpatient hospice. /[id number]/MODL MTDD
[2018-03-13] MEDS: morphINE 10 MG/0.5 ML UDSYR PO PRN ×6 (09:21→23:36)
[2018-03-13] MEDS: LORazepam 2 MG/ML INJ IVP PRN ×2 (10:35→15:35)
[2018-03-13] MEDS: ATROPINE 1% 5 ML OPHT.BTL SL PRN ×4 (13:14→23:38)
--- NOTE | 2018-03-13 15:11 | ASMTCMCOM ---
CM Note CM Note Notes: Providing comfort care at this time to pt. Notified [facility] and spoke w/Meredith [facility] RN, that pt will remain hospitalized for today/tonight and will reassess tomorrow if [facility] care center is option. Pt's dtr, Evelia, was here earlier with her and RN has spoken w/dtr, Rosanne (MDPALMA), who lives out of [place]. They were in agreement w/pt remaing at [facility] for now. Discussed in rounds this AM w/Dr Moseley.CM will follow. Date Signed: 03/13/2018 03:10 PM Electronically Signed By:Terri Rubio RN
--- NOTE | 2018-03-13 15:30 | ASMTCMCOM ---
CM Note CM Note Notes: Addition to last CM note: Please notify Meredith Galindo ([phone]) RN with [facility], tomorrow with updates. Date Signed: 03/13/2018 03:29 PM Electronically Signed By:Terri Rubio RN
--- NOTE | 2018-03-13 18:38 | HOSPPROG ---
Hospitalist Progress Note Assessment/Plan: Assessment: 82-year-old female presents with acute hypercapnic respiratory failure and resultant acute metabolic encephalopathy Plan: 1. Acute hypercapnic respiratory failure. Evidenced by venous pH of 7.16 with mixed pCO2 of 84, indicating a primary respiratory acidosis with visible respiratory distress as her presenting symptom and ongoing tachypnea with gasping -BiPAP initially started in the emergency department until the patient's goals of care had been further clarified between the emergency department provider and the patient is MD RIVAS -decision was made to pursue comfort measures per the direction of the patient' s recently completed MOST form -she will be continued on her home supplemental oxygen which she is on for chronic hypoxic respiratory failure -discussed with true hospice physician Dr. Cardenas, we agreed that patient will be treated for respiratory symptoms with as needed morphine, Roxanol, Ativan, atropine drops -chest x-ray demonstrates no focal airspace disease, personally interpreted 2. Acute metabolic encephalopathy. Evidenced by global brain dysfunction characterized as disorientation, somnolence, obtundation, all of which is an acute change from the patient's baseline per her daughters, and is most likely secondary to the metabolic effects of hypercapnia -patient is currently oriented to person and place, not to time, she is visibly obtunded and arousable only to tactile stimuli -she has likely terminally encephalopathic and I would not anticipate significant improvement in her mental status 3. Chronic hypoxic respiratory failure. Secondary to underlying diagnosis of COPD, she is continued on her current home dosage of supplemental oxygen 4. Acute kidney injury. Evidenced by creatinine level of 1.2, most likely secondary to hypovolemia in the setting of respiratory failure and poor access to oral intake, no further treatment indicated as the patient is terminal 5. Acute demand ischemia. Evidenced by troponin level 0.2, with EKG demonstrating ST depression in lead 2,3, V5 to V6 as well as a sinus tachycardia , most likely resulting in cardiac strain secondary to her underlying respiratory failure -currently holding her home cardiac medications as her goals of care are no further invasive interventions 6. Acute hyperkalemia. Secondary to acute kidney injury, no further intervention Diet. For comfort Prophylaxis. None indicated given patient's goals of care Code. Do not resuscitate clearly stated on her advanced directive Disposition. Anticipated discharge uncertain, expect patient will pass away within the next 24 hr. High-level of medical complexity, high risk patient for mortality today secondary to the conditions outlined above. Subjective: Patient reports that she is not in pain Objective: Vital Signs Temp Pulse Resp BP Pulse Ox 35.7 C L 130 H 32 H 146/113 H 92 03/12/18 18:32 03/12/18 23:50 03/12/18 23:50 03/12/18 18:32 03/12/18 23:50 - Physical Exam Constitutional: no apparent distress, not in pain, chronically ill appearing, uncomfortable Cardiovascular: tachycardia, No systolic murmur, No irregularly irregular, No edema Respiratory: reduced air movement (On expiration bilaterally), expiratory wheeze (Faint bilaterally), other (Visibly tachypneic and mouth breathing), No bronchial breath sounds Gastrointestinal: normoactive bowel sounds, soft, non-tender abdomen, no palpable masses Neurologic: No AAOx3 (Alert awake oriented x2 to person and place not to time) Psychiatric: not anxious, encephalopathic, other (Responds only to tactile stimuli, does not follow commands), No agitated ICD10 Worksheet Patient Problems: Problems Problem Status Onset Intracranial hemorrhage Acute Hydrocephalus Acute Cellulitis Acute Sepsis Acute Fall Acute Skin tear Acute Syncope Acute Elevated troponin Acute COPD (chronic obstructive pulmonary disease) Acute Respiratory failure Acute Hypoxemia Acute Hospice care patient Acute
[2018-03-14] MEDS: morphINE 10 MG/0.5 ML UDSYR PO PRN ×6 (01:49→14:59)
[2018-03-14] MEDS: ATROPINE 1% 5 ML OPHT.BTL SL PRN ×7 (01:50→14:59)
--- NOTE | 2018-03-14 14:12 | ASMTCMCOM ---
CM Note CM Note Notes: 03/14/2018 Case Management Note Discussed pt during rounds this morning. Daughter Evelia present during rounds. Notified Meredith Galindo [facility] RN [phone] that pt will remain at [facility] and will not transfer to [facility] inpatient care center. Please notify [facility] hospice, available 13/04, when pt passes at [phone]. [facility] will make all arrangements with home and provide support for family. Case Management available for any needs. Date Signed: 03/14/2018 02:12 PM Electronically Signed By:Karla Aquino RN
--- NOTE | 2018-03-14 16:33 | ASDISCHSUM ---
Discharge Information Plan Status: Medically Cleared to Leave: Discharge Date: CM D/C Disposition: ADT D/C Disposition: Projected Discharge Date: Transportation at D/C:None or Unknown Discharge Delay Reason: Follow-Up Date: Discharge Slot: Final Diagnosis: Placement Information Patient Contact Information Contact Name:DESMOND Relationship:Daughter Address: Work Phone: City:[place] Alternate Phone: State/Zip Code:[place] Email: Financial Information Financial Class:Medicare Advantage Plans Primary Plan Desc:[employer] MED[employer]ARE ADVANTAGE OUTPAT Primary Plan Number:[id number] Secondary Plan Desc:MEDICAID HEALTH FIRST MEMBERSHIP ASSISTANT Secondary Plan Number:[id number] Assessment Information [facility] CM Progress Note CM Note CM Note Notes: Pt presented to the ED via EMS from her Assisted Living apartment at [facility] for dyspnea, diaphoresis, hypoxemia, and difficulty speaking. 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 Pt's daughter and MDPOA, Rosanne Pardo, requested that [facility] call 911 and send patient to the ED. Rosanne had also been in communication w/[facility] and was explained that pt would be temporarily revoked from hospice if she were to be admitted. This CM spoke w/Meredith, commissary superintendent at [facility] and she states one of their RNs saw patient this morning and had written for new orders (including morphine; these new orders had not made it onto pt's med list yet), but they were not going to be filled until tonight. On arrival to the ED, there was confusion as to whether pt is a DNR or not, despite a MOST (pt signed in 09/15/2017) form being sent from [facility] that states pt is a DNR w/selective treatment and [facility] faxed over their A-N-D ([employer] ) form that pt signed on 03/05/18. After much discussion w/Rosanne, ED MD, [facility], and [facility]; it has been determined that yes, patient is a DNR and Rosanne wants to honor the patient's choice to be a DNR. Rosanne lives in [place] and there is definite need for increased communication/education re: pt's overall condition/status (per Adriana, Paymaster Of Purses at [facility], Rosanne has not been out to [place] for 2-3 years), what being on hospice means, etc. ED MD and this CM attempted to provide as much of that as possible over the phone. Ultimately, because of pt's dyspnea and decreased ability to speak or verbally communicate decisions, ED MD spoke w/ Rosanne and she has decided she doesn't want pt to return home on hospice yet, and would like her admitted for comfort care. This CM spoke w/Adriana, Paymaster Of Purses at [facility] ([phone]) and relayed this info; Adriana states that the only way they could accept pt back into [facility] is if she returns on hospice. This CM called Meredith at [facility] in order to update but had to leave a message. Pt has another daughter, Evelia, and granddaughter, Tia, who live locally but per Rosanne, she will reach out to them if needed; otherwise Evelia should not be involved unless the patient wants her contacted. Rosanne reports that pt recently was at [facility] last week or so and d/c'd to rehab ([facility]?). Per Rosanne, Evelia showed up at the rehab facility and convinced staff that she was the pt's POA and requested that pt's pain medications be titrated down significantly. If pt stabilizes, anticipate DC back to [facility] or be transferred to a [facility]. CM to follow. Date Signed: 03/12/2018 06:39 PM Electronically Signed By:Rosalie Mora RN NATHANAEL NATHANAEL Acuity / Level of Answers: No Care: Did the patient have an inpatient admission? Comorbidities - select Answers: Chronic pulmonary disease all that apply Opioid dependence / Chronic pain Other Notes: Hospice for End-Stage COPD; HTN; UTIs, Anemia , n europathy # of Emergency department Answers: 1-2 visits in the last 6 months Social determinants Answers: Mental health diagnosis (anxiety, depression, pers onality disorders, etc.) Score: 11 Date Signed: 03/12/2018 06:40 PM Electronically Signed By:Rosalie Mora RN [facility] CM Progress Note CM Note CM Note Notes: Providing comfort care at this time to pt. Notified [facility] and spoke w/[facility] Harper RN, that pt will remain hospitalized for today/tonight and will reassess tomorrow if [facility] care center is option. Pt's dtr, Evelia, was here earlier with her and RN has spoken w/dtr, Rosanne (MDP), who lives out of state. They were in agreement w/pt remaing at [facility] for now. Discussed in rounds this AM w/Dr Moseley.CM will follow. Date Signed: 03/13/2018 03:10 PM Electronically Signed By:Terri Rubio RN [facility] CM Progress Note CM Note CM Note Notes: Addition to last CM note: Please notify Meredith Galindo ([phone]) RN with [facility], tomorrow with updates. Date Signed: 03/13/2018 03:29 PM Electronically Signed By:Terri Rubio RN [facility] CM Progress Note CM Note CM Note Notes: 03/14/2018 Case Management Note Discussed pt during rounds this morning. Daughter Evelia present during rounds. Notified Meredith MURO RN [phone] that pt will remain at [facility] and will not transfer to [facility] inpatient [facility]. Please notify [facility] hospice, available 13/04, when pt passes at [phone]. [facility] will make all arrangements with home and provide support for family. Case Management available for any needs. Date Signed: 03/14/2018 02:12 PM Electronically Signed By:Karla Aquino RN Intervention Information Intervention Type:Education Family/Patient Date of Service:03/12/2018 06:41 PM Patient Type:Observation Staff Member:DAVID Mora [place] Hours:0.5 Discipline:Network Cabler Severity: Comment: Intervention Type:Post Acute Communication Date of Service:03/12/2018 06:41 PM Patient Type:Observation Staff Member:DAVID Mora [place] Hours:0.5 Discipline:Network Cabler Severity: Comment:
--- NOTE | 2018-03-14 18:46 | PDDCSUM ---
Discharge Summary Discharge Summary: DISCHARGE SUMMARY/EXPIRATION NOTE DATE OF ADMISSION: 03/12/2018 DATE OF EXPIRATION: 03/14/2018 TIME OF EXPIRATION: 4:20 p.m. CAUSE OF : Acute Hypercapnic Respiratory Failure DISCHARGE DIAGNOSES: 1. Acute hypercapnic respiratory failure 2. Acute metabolic encephalopathy 3. Chronic hypoxic respiratory failure 4. Acute kidney injury 5. Acute demand ischemia 6. Acute hyperkalemia 7. Acute COPD exacerbation CONSULTATIONS: None PROCEDURES / IMAGING: Chest x-ray demonstrating no focal airspace disease CHIEF COMPLAINT: Acute shortness of breath and respiratory distress HOSPITAL COURSE BY PROBLEM: The patient presented with acute hypercapnic respiratory failure evidenced by a venous pH of 7.16 with mixed pCO2 of 84 indicating a primary respiratory acidosis with visible respiratory distress as her presenting symptom and ongoing tachypnea and gasping. The cause of her respiratory failure was most likely acute COPD exacerbation. The patient had known comma end-stage COPD and was on hospice prior to presentation. The patient's hospice nurse had responded appropriately in the home setting, and after she communicated the patient's situation to the patient's family, they requested that the patient receive medical evaluation and potential treatment if there were any underlying infectious causes. Consequently, the patient was brought to the emergency department, where she underwent chest x-ray which demonstrated no evidence of pneumonia. Consequently, no antibiotics were indicated or prescribed. The patient also had the above-mentioned blood gas performed which demonstrated profound respiratory acidosis and although she was initially placed on BiPAP therapy, this was discontinued after the emergency room physician discussed with the patient's MD RIVAS and they mutually agreed that this level of intervention was not within the patient's pre stated goals of care per her MOST directive. However, the patient's medical power of traffic law attorney, who had been specifically designated by the patient on her most directive to direct all of her medical care, did request the patient be admitted as an inpatient to our hospital for further medical care. We treated the patient for acute metabolic encephalopathy which was evidenced by global brain dysfunction characterized as disorientation, somnolence, obtundation, all of which were an acute change from the patient's baseline, and most likely secondary to the metabolic effects of hypercapnia. For this, she received full nursing care, and she received supportive pain and anxiety lytic medications for her ongoing respiratory failure and COPD exacerbation, as these conditions were deemed to be terminal and the patient is MD RIVAS agreed they should be treated supportively without further procedural intervention. Her additional medical conditions including acute kidney injury, acute demand ischemia, and acute hyperkalemia, were all evaluated in the emergency department and likely contributed to her eventual expiration, as the patient became anuric and peacefully on 2017 at 4:20 p.m.. It should be noted that the patient is MD RIVAS was involved with the patient's care remotely by following throughout her hospitalization, and her local daughter, Evelia, was also involved in the patient's care during our daily team rounds. The patient's hospice agency, [facility], was involved with the patient's care, communicating directly with the nurse and physician on-call on 03/13. Our condolences got out to the patient and her family.
== END 2018-03-14 17:45 | disposition expired ==
LOC: EDUNIT# → F2W 18:20
PROVIDERS: ADMIT Hospitalist; ATTEND Internal Medicine
DX: J96.02 Acute respiratory failure with hypercapnia (principal); G93.41 Metabolic encephalopathy; J96.11 Chronic respiratory failure with hypoxia; J44.1 Chronic obstructive pulmonary disease with (acute) exacerbation; N17.9 Acute kidney failure, unspecified; I24.8 Other forms of acute ischemic heart disease; I10 Essential (primary) hypertension; E03.9 Hypothyroidism, unspecified; E87.5 Hyperkalemia; Z66 Do not resuscitate; Z99.3 Dependence on wheelchair
CPT/HCPCS: 71045; 93005; G0378; J2060; 84484-PO; J2270